=== PATIENT | female | born 1950 | race Caucasian/White ===

== ENCOUNTER → 2018-07-07 10:58 | Outpatient (CLI) | payer MEDICARE, SELFPAY ==
--- NOTE | 2018-07-07 | DI.MG.S_ITS ---
BILATERAL DIGITAL SCREENING MAMMOGRAM 3D/2D WITH CAD: 07/07/2018 CLINICAL: Routine screening. Family history of breast cancer. Comparison is made to exams dated: 07/03/2017 mammogram, 06/16/2016 mammogram, and 05/23/2015 mammogram - [facility]. There are scattered fibroglandular elements in both breasts. Current study was also evaluated with a Computer Aided Detection (CAD) system. No significant masses, calcifications, or other findings are seen in either breast. There has been no significant interval change. IMPRESSION: NEGATIVE There is no mammographic evidence of malignancy. A 1 year screening mammogram is recommended. This exam was interpreted at Station ID: [id number]. NOTE: For mammograms, a report in lay terms will be sent to the patient. Approximately 15% of breast malignancies will not be visualized mammographically. In the management of a palpable breast mass, a negative mammogram must not discourage biopsy of a clinically suspicious lesion. Electronically Signed By: Caleb griffith/perico:07/07/2018 16:44:08 letter sent: Normal Exam ACR BI-RADS Category 1: Negative [id number]
== END ==
PROVIDERS: PCP Family Medicine; Visit Provider Family Medicine
DX: Z12.31 Encounter for screening mammogram for malignant neoplasm of breast (principal); Z80.3 Family history of malignant neoplasm of breast
CPT/HCPCS: 77063; 77067

== ENCOUNTER → 2018-11-22 07:18 | Outpatient (CLI) | payer MEDICARE, SELFPAY ==
[2018-11-22 07:55] LABS: Add Manual Diff / Slide Review NO; Basophils Absolute Auto 100 /uL (0-100); Basophils Percent Auto 1.4 % (0-2); Eosinophils Absolute Auto 600 /uL (0-450); Hematocrit 41.9 % (36-46); Hemoglobin 14.2 g/dL (12.0-16.0); Lymphocytes Absolute Auto 1600 /uL (1100-4500); Lymphocytes Percent Auto 27.1 % (25-40); Mean Corpuscular HGB Conc 33.9 % (30-36); Mean Corpuscular Hemoglobin 31.9 PG (26-34); Monocytes Absolute Auto 600 /uL (0-900); Monocytes Percent Auto 10.6 % (3-14); Neutrophils Absolute Auto 2900 /uL (1500-7000); Neutrophils Percent Auto 49.9 % (50-75); Platelet Count 343 X10^3/uL (150-400); Red Blood Cell Count 4.45 X10^6/uL (4.0-5.2); Red Cell Distribution Width 16.6 % (11.6-14.8); White Blood Cell Count 5.9 X10^3/uL (4.5-11.0)
[2018-11-22 08:11] LABS: Hemoglobin A1C% w Est Avg Glu 6.9 % (4.0-6.0)
[2018-11-22 08:55] LABS: Alanine Aminotransferase 24 IU/L (9-52); Albumin 4.4 g/dL (3.5-5.0); Albumin Globulin Ratio 1.4 (1.0-2.8); Alkaline Phosphatase 68 U/L (38-126); Aspartate Aminotransferase 37 IU/L (14-36); Bilirubin Total 0.5 mg/dL (0.2-1.3); Blood Urea Nitrogen 21 mg/dL (7-17); Calcium 10.8 mg/dL (8.4-10.2); Carbon Dioxide 31 mmol/L (22-32); Chloride 93 mmol/L (98-107); Cholesterol 145 mg/dL (140-199); Estimated Glomerular Filt Rate > 60.0 mL/min (>60); Globulin 3.1 g/dL (1.7-4.1); Glucose 133 mg/dL (80-110); HDL Cholesterol 74 mg/dL (40-60); HEMOLYSIS < 15 (0-50); LDL Cholesterol Calculated 54 mg/dL (<100); Potassium 3.6 mmol/L (3.4-5.1); Sodium 135 mmol/L (137-145); Total Protein 7.5 g/dL (6.3-8.2); Triglycerides 84 mg/dL (35-150)
[2018-11-22 09:42] LABS: TSH w/ Reflex to FT4 0.79 uIU/mL (0.47-4.68)
== END ==
PROVIDERS: PCP Family Medicine; Visit Provider Family Medicine
DX: E04.1 Nontoxic single thyroid nodule (principal); E11.9 Type 2 diabetes mellitus without complications; E78.2 Mixed hyperlipidemia; I10 Essential (primary) hypertension
CPT/HCPCS: 36415; 80053; 80061; 83036; 84443; 85025

== ENCOUNTER → 2018-12-06 09:08 | Outpatient (CLI) | payer MEDICARE, SELFPAY ==
--- NOTE | 2018-12-06 09:10 | DI.US.S_ITS ---
PROCEDURE: US THYROID INDICATIONS: THYROID NODULE TECHNIQUE: Real-time scanning was performed of the thyroid gland, with image documentation. COMPARISON: [facility], US, THYROID, 06/16/2016, 9:03. FINDINGS: Right: Thyroid lobe measures 4.3 x 1.2 x 1.9 cm, and is homogeneous in echotexture. Left: Thyroid lobe measures 5.8 x 1.5 x 1.5 cm, and is homogenous in echotexture. Isthmus: 3 mm thick. Nodule number: #1 Location: Upper pole left thyroid lobe Size: 7 x 6 x 4 mm. Previously measures 8 x 6 x 5 mm. Composition: Solid Echogenicity: Hypoechoic Shape: Wider than tall Margins: Smooth Echogenic foci: Macrocalcifications Total points: 5 ACR TI-RADS category: 4 Nodule number: #2 Location: Lower pole left thyroid lobe Size: 2.3 x 1.3 x 1.5 cm. previously measures 2.4 x 1.7 x 2 cm in size. Composition: Solid Echogenicity: Hypoechoic Shape: Wider than tall Margins: Smooth Echogenic foci: None Total points: 4 ACR TI-RADS category: 4 Nodule number: #3 Location: Mid to lower pole right thyroid lobe Size: 8 x 6 x 8 mm in size. Previously measures 4 mm in size. Composition: Predominantly cystic Echogenicity: Isoechoic Shape: Wider than tall Margins: Smooth Echogenic foci: None Total points: 2 ACR TI-RADS category: 2 IMPRESSION: 1. Moderately suspicious nodules in right thyroid lobe are stable in size and appearance. Not suspicious-appearing nodule in inferior pole of right thyroid lobe is slightly larger in size on the current study. Continued sonographic followup is recommended. ACR TI-RADS definitions and recommendations: TI-RADS 1 (benign): 0 points. FNA not needed. TI-RADS 2 (not suspicious): 2 points. FNA not needed. TI-RADS 3 (mildly suspicious): 3 points. * FNA if 2.5 cm or larger, follow up if 1.5 cm or larger (at 1, 3, and 5 years). TI-RADS 4 (moderately suspicious): 4-6 points. * FNA if 1.5 cm or larger, follow up if 1 cm or larger (at 1, 2, 3, and 5 years). TI-RADS 5 (highly suspicious): 7 points or more. * FNA if 1 cm or larger, follow up if 0.5 cm or larger (every year for 5 years). Dictated by: Isac Tamez M.D. on 12/06/2018 at 10:45 Approved by: Isac Tamez M.D. on 12/06/2018 at 10:52
--- NOTE | 2018-12-06 09:10 | DI.US.S_ITS ---
PROCEDURE: US PELVIC COMPLETE INDICATIONS: PELVIC CA++ ON XRAY TECHNIQUE: Real-time scanning was performed of the pelvic organs, with image documentation. Additional endovaginal scanning was necessary due to incomplete visualization of the adnexal and endometrial structures by transabdominal scanning. COMPARISON: None. FINDINGS: Transabdominal scanning: Limited scanning through the kidneys shows no hydronephrosis. No pathologic free abdominal or pelvic fluid. 5 mm calcification is noted in the anterior mid myometrium. 2.3 cm calcified fibroid is seen in left myometrium. No gross endometrial mass or fluid. Endovaginal scanning: Uterus: Uterus is normal in size at 5.8 x 1.9 x 2.9 cm. The endometrium measures 1.7 mm in combined thickness. Ovaries: Right ovary measures 1.7 x 1.3 x 0.6 cm in size. Left ovary measures 2.5 x 1.3 x 1.8 cm in size. Simple appearing small follicles are seen in the left ovary measures up to 6 mm in size. No gross solid appearing lesion. IMPRESSION: 1. Likely 2.3 cm calcified fibroid in left myometrium. 5 mm calcification in the anterior mid myometrium which may represent a small calcified fibroid. No endometrial mass or fluid. 2. No adnexal mass or fluid. Subcentimeter follicles in left ovary. Dictated by: Isac Tamez M.D. on 12/06/2018 at 10:55 Approved by: Isac Tamez M.D. on 12/06/2018 at 11:07
== END ==
PROVIDERS: PCP Family Medicine; Visit Provider Family Medicine
DX: E04.2 Nontoxic multinodular goiter (principal); R10.2 Pelvic and perineal pain; D25.9 Leiomyoma of uterus, unspecified
CPT/HCPCS: 76536; 76830; 76856

== ENCOUNTER → 2018-12-24 15:04 | Outpatient (CLI) | payer MEDICARE, SELFPAY | PROVIDERS: PCP Family Medicine; Visit Provider Orthopaedic Surgery | DX: Z01.818 Encounter for other preprocedural examination (principal) | CPT/HCPCS: 93005 ==

== ENCOUNTER 2019-02-15 06:19 | Inpatient (IN) | payer MEDICARE, SELFPAY ==
[2019-01-31 12:45] VITALS: BMI 24.6
[2019-02-15] VITALS (14 sets, daily range): BP systolic 101–144; BP diastolic 47–85; PULSE 77–94; RESP 8–19; TEMP 36.2–37; O2SAT 93–98; BMI 24.6
--- NOTE | 2019-02-15 | DI.RAD.S_ITS ---
PROCEDURE: XR PELVIS 1-2V INDICATIONS: INTEROP TECHNIQUE: 1 view of the lower pelvis acquired. COMPARISON: [facility], , PELVIS W UNILATERAL HIP LEFT, 02/15/2015, 10:40. FINDINGS: Bones: Patient is status post right hip arthroplasty, with hardware components in expected positions. The hip joint appears congruent. The visualized bony structures appear intact. Soft tissues: Overlying postoperative changes are noted. No suspicious soft tissue densities. IMPRESSION: Intraoperative film shows right total hip arthroplasty with anatomic alignment. Dictated by: Isac Tamez M.D. on 02/15/2019 at 10:39 Approved by: Isac Tamez M.D. on 02/15/2019 at 10:40
--- NOTE | 2019-02-15 06:00 | DI.RAD.S_ITS ---
PROCEDURE: XR HIP W PEL IF DONE RT 2V INDICATIONS: post op films TECHNIQUE: AP pelvis and lateral view of the right hip acquired. COMPARISON: [facility] [place], CR, XR PELVIS WITH BILATERAL LATERAL HIPS, 09/17/2018, 10:54. [facility], CR, HIP 2V LEFT, 10/11/2013, 11:16. [facility], [facility], XR PELVIS 1-2V, 02/15/2019, 9:30. FINDINGS: Bones: Patient is status post right hip arthroplasty, with hardware components in expected positions. The hip joint appears congruent. The visualized bony structures appear intact. Left hip arthroplasty is stable. Soft tissues: Overlying postoperative changes are noted. No suspicious soft tissue densities. Calcifications are present in the pelvis, likely related to uterine fibroids. IMPRESSION: Right hip arthroplasty as above. Dictated by: Reta Shi M.D. on 02/15/2019 at 10:14 Approved by: Reta Shi M.D. on 02/15/2019 at 10:16
[2019-02-15] MEDS: ACETAMINOPHEN 325 MG TABLET 975 MG PO (06:59)
[2019-02-15] MEDS: MELOXICAM 7.5 MG TABLET 15 MG PO (06:59)
[2019-02-15] MEDS: VANCOMYCIN 1,000 MG/200 ML PIGGYBACK 200 MG IV (06:59)
[2019-02-15] MEDS: PREGABALIN 75 MG CAPSULE PO (07:00)
--- NOTE | 2019-02-15 07:37 | PM.PREOP ---
Pre-operative Note Interval Note History & Physical reviewed/Exam performed by Physician: Yes Changes to H&P: No
--- NOTE | 2019-02-15 07:38 | P.OP_ITS ---
Operative Date/Time/Diagnoses Date of procedure: 02/15/19 Time of procedure: 07:59 Pre-op diagnosis: right hip OA Post-op diagnosis: same Procedure & Clinicians Procedure: right total hip arthroplasty Same procedure as scheduled: Yes Indications: The patient has had progressively worsening right hip pain with radiographic changes consistent with arthritis. Non-operative management has failed and the patient has requested total hip replacement. The risks, benefits and alternatives to surgery were discussed with the patient prior to proceeding. Risks discussed included, but were not limited to, failure to relieve pain, leg length discrepancy, dislocation, stiffness, infection, nerve damage, deep venous thrombosis, pulmonary embolism, stroke, coma, heart attack, permanent paralysis and , as well as the potential need for eventual revision of the prosthetic. Surgeon: Kori Madden Career Services Manager: Fuentes Salas Anesthesia Type: General and Spinal Operative Notes Findings: Severe right hip osteoarthritis, adequate stability, adequate bone Closure Type: primary Specimen(s): none sent Prosthetic devices, grafts, tissues, transplants, or devices: [employer]en [employer] Nephew size 4 anthology, 50 mm R3 cup, one 6.5mm screw, +0 by 32 mm oxinium head Applied: drain(s) Estimated Blood Loss (mL): 250 Blood products transfused: none Procedure in detail: The patient was seen in the pre-operative area, where the patient identified the right hip as the operative site and this was marked with my initials. The patient received pre-operative antibiotics and was taken to the operating room and placed on the operative table in the left lateral decubitus position after satisfactory anesthesia. A second time worker out was performed. The right leg was prepared from the ankle to the iliac crest with ChloroPrep in the usual fashion and draped through sterile drapes. The hip was approached through an approximately 20 cm incision centered over the greater trochanter and curving gently posteriorly as it went proximally. This was carried sharply to the fascia dimple, which was divided and retracted with a self retaining retractor. The trochanteric bursa was excised with care being taken to avoid the sciatic nerve, which was identified and protected throughout the case. The short external rotators were incised and the capsulomuscular flap was raised and tagged for later repair. The hip was dislocated, and a femoral neck osteotomy performed approximately 15 mm above the lesser trochanter. Retractors were placed around the femur. The canal was opened with a box cutting osteotome, followed by a T handled reamer and a lateralizing reamer. The chili pepper broach was then used, followed by sequential broaching until there was good stability of the broach in the femur. Retractors were placed to expose the acetabulum. The labrum and central soft tissues were removed. Reaming was performed initially going up in 2 mm increments, then 1 mm increments until good bite was obtained with an odd sized reamer. The cup 1 mm larger than the last reamer was then inserted using the appropriate anteversion guides. It was further stabilized with a 6.5mm screw. A trial neutral liner was placed. The broach was placed in the canal. A trial head and neck were then placed and the hip relocated and checked for leg length and stability. An intraoperative film confirmed the component position and no evidence of fracture. The patient was stable in the position of sleep, of squatting, and could be put through a range of motion with 45 degrees internal rotation without dislocation. At 90 de grees flexion, internal rotation to 70? was possible before dislocation. This was felt to be satisfactory and the appropriate components were opened, and the trials were removed. The acetabular liner was impacted into position. The final stem was then impacted into the prepared femoral canal. A brief Betadine soak was performed while trialing with head options. The hip was meticulously irrigated with normal saline. Finally the femoral head was impacted onto the stem. The acetabulum was cleared of all material and the hip relocated one final time. The capsulomuscular flap was then repaired to the greater trochanter though an awl hole using the tag sutures. The short external rotators were repaired with a nonabsorbable suture. A deep drain was placed and brought out anteriorly. The fascia dimple was closed with Vicryl. The subcutaneous layer was closed with barbed sutures and SteriStrips. An Aquacel Ag dressing was applied and the patient was taken to recovery having tolerated the procedure well. Complications: none Post-operative Condition: stable Disposition: Acute Care Plan for aftercare: The patient will be maintained on a standard total hip replacement protocol with weight bearing as tolerated and posterior hip precautions. The patient will receive Aspirin and sequential compression devices for DVT prophylaxis. The patient will be discharged home when safe for the home environment.
[2019-02-15] MEDS: LACTATED RINGERS 1,000 ML 42 ML IV (08:14)
[2019-02-15] MEDS: MIDAZOLAM 2 MG/2 ML VIAL IV (08:15)
--- NOTE | 2019-02-15 08:15 | SUR.PREOP ---
Put on continuous pulse ox prior to administration of medication.
[2019-02-15] MEDS: CEFAZOLIN 2 GM/100 ML FROZ.PIGGY IV ×2 (08:30→16:08)
--- NOTE | 2019-02-15 09:04 | SUR.OPER ---
Lateral on padded OR bed. Gel axillary roll. Arms secured on padded armboard with pillow supporting top arm. Padded hip positioner braces x4 - anterior and posterior chest and pelvis. Additional gel pad used anterior pelvis. Gel pad under bottom leg from knee to foot and secured with tape over sheet.
[2019-02-15] MEDS: BUPIVACAINE LIPOSOME 266 MG/20 ML VIAL INJ (09:14)
[2019-02-15] MEDS: BUPIVACAINE 0.25% W/ EPI (PF) 10 ML VIAL 60 ML INJ (09:17)
[2019-02-15] MEDS: TRANEXAMIC ACID 1,000 MG VIAL 1000 MG INJ ×2 (09:18→09:32)
[2019-02-15] MEDS: SODIUM CHLORIDE IRRIG SOLUTION 250 ML, EPINEPHrine 1 MG IRR (09:24)
[2019-02-15] MEDS: SODIUM CHLORIDE IRRIG SOLUTION 250 ML, POVIDONE-IODINE SPONGE STICKS 1 APPLIC IRR (09:32)
--- NOTE | 2019-02-15 09:36 | SUR.OPER ---
Late start in OR because of an .emergency surgery in OR 2 - ex lap with Dr. Willams, anesthesiologist was busy.
[2019-02-15] MEDS: HYDROMORPHONE 2 MG INJ IV ×4 (10:55→11:30)
[2019-02-15] MEDS: INSULIN ASPART 100 UNIT/ML INSULN PEN SUBCUT ×3 (11:02→22:29)
[2019-02-15] MEDS: LACTATED RINGERS 1,000 ML 125 ML IV (12:54)
[2019-02-15] MEDS: OXYCODONE IR 5 MG TABLET PO ×3 (13:00→21:34)
--- NOTE | 2019-02-15 14:02 | PC.NURSE ---
1200- Pt arrived to floor at 1200. She is groggy but a&ox3. Dressing to r.hip is cdi, with hemovac putting out bloody drainage. She is a diabetic and bs down in pacu 190s, given 2u of novolog insulin. Pt tolerating a carb consistent diet and denies nausea. She has feeling to her r.hip and denies any numbness or tingling. Pt is able to wiggle her ankle and toes, SCDs applied to legs. Pt has an iv to her l.wrist and LR at 125cc/hr infusing. Given 1 oxycodone for complaints of 7/10 pain and helpful. Resting comfortably and in room. Tolerated her lunch at 1300.
[2019-02-15] MEDS: ACETAMINOPHEN 325 MG TABLET 650 MG PO ×2 (14:23→21:24)
[2019-02-15] MEDS: IBUPROFEN 400 MG TABLET PO ×3 (14:23→21:24)
--- NOTE | 2019-02-15 14:38 | PT-IP ANOTE ---
Received PT orders and reviewed chart. Contacted pt to initiate evaluation, but pt unable to move left leg and presents as quite groggy with difficulty attending to conversation. Will attempt to see pt either late this afternoon or morning of 02/16.
[2019-02-15] MEDS: ONDANSETRON 4 MG ODT PO (16:08)
[2019-02-15] MEDS: DOCUSATE 100 MG CAPSULE PO (21:24)
[2019-02-15] MEDS: PANTOPRAZOLE 20 MG TABLET PO (21:25)
[2019-02-15] MEDS: SIMVASTATIN 40 MG TABLET PO (21:25)
[2019-02-15] MEDS: ASPIRIN EC 81 MG TABLET PO (21:25)
[2019-02-15] MEDS: TRIAMTERENE/HCTZ 37.5/25 TABLET 1 CAP PO (21:41)
[2019-02-16] VITALS (8 sets, daily range): BP systolic 106–146; BP diastolic 55–82; PULSE 65–94; RESP 16–17; TEMP 35.9–36.8; O2SAT 92–99
[2019-02-16] MEDS: IBUPROFEN 400 MG TABLET PO ×6 (00:06→20:33)
[2019-02-16] MEDS: CEFAZOLIN 2 GM/100 ML FROZ.PIGGY IV (00:07)
[2019-02-16] MEDS: OXYCODONE IR 5 MG TABLET PO ×3 (00:09→06:14)
[2019-02-16] MEDS: ALPRAZolam 0.5 MG TABLET 1 MG PO ×2 (03:19→23:30)
[2019-02-16 05:35] LABS: Hematocrit 30.4 % (36-46); Hemoglobin 10.1 g/dL (12.0-16.0)
--- NOTE | 2019-02-16 06:17 | PC.NURSE ---
Pt is mobilizing well. 1p FWW to BSC. Reports pain 8 out of 10; oxycodone 5mg given with some relief. Ibuprofen and tylenol scheduled. LR@125mL/hr running throughout night; d/c'ed this morning, no nausea. B/L SCDs on throughout night. Hemovac= 55mL sanguinous Fingerstick overnight was 212
--- NOTE | 2019-02-16 07:46 | PC.NURSE ---
Addendum entered by Tiffani Aburto R.N. 02/16/19 15:55: Pain with rest 10, with movement /10. PRN Oxycodone increased to 10mg given at 1100 and 1410. Vistaril prn given at 0840. Pain goal to be lower. explained to pt that goal is to catch up on pain level from night/AM and may need a couple doses with new pain regime to be more effective, Evening RN to assess, ? change pain med if neede. and aware to remove hemovac today. Right hip aquacel dressing CDI. CMS+, denies numbness/tingling. Original Note: Day Shift- Spoke with ROSALIE Núñez, request for prn Vistaril, pt having pain issues she reports over night.
--- NOTE | 2019-02-16 07:59 | PM.PN.1 ---
Subjective Subjective Date Patient Seen: 02/16/19 Time Patient Seen: 07:59 Interval history: Patient is POD#1 s/p R MELLY with Dr. Madden. Pain moderate to severe overnight. Minimal nausea no emesis. Ambulated to bedside commode and voiding appropriately but has no worked with PT. No chest pain shortness of breath. Exam Vital Signs (past 8 hours): - 02/16/19 00:10 02/16/19 03:14 Temperature 97.9 F 97.4 F L Pulse Rate 82 75 Respiratory Rate 16 Blood Pressure 122/58 L 119/64 Pulse Oximetry 98 98 Oxygen Delivery Method Room Air Oxygen Flow Rate 0 Narrative Exam Narrative: 68 year old female resting in bed, alert and oriented no acute distress. Aquacel dressing is CDI. Drain in place. PAtient able to fire foot flexors and extensors. Calves soft, compressible. Palpable pedal pulse. Objective Labs Result Diagrams: 02/16/19 05:03 Labs: Laboratory Results - last 24 hr 02/16/19 05:03 Hgb 10.1 L Hct 30.4 L Assessment & Plan Assessment & Plan narrative: Improve pain control today. Oxycodone 10mg Q3h and Vistaril 25mg Q4h for spasm added. Mobilize with PT. ASA 81mg BID and SCDs for DVT prophylaxis. Possible discharge to home later or today or tomorrow if improved mobility/pain control. Quality VTE Deep Vein Thrombosis/Pulmonary Embolism Present on Admission: No
[2019-02-16] MEDS: INSULIN ASPART 100 UNIT/ML INSULN PEN SUBCUT ×4 (08:33→20:35)
[2019-02-16] MEDS: POLYETHYLENE GLYCOL 3350 17 GM POWD.PACK PO (08:40)
[2019-02-16] MEDS: DOCUSATE 100 MG CAPSULE PO ×2 (08:41→20:33)
[2019-02-16] MEDS: ASPIRIN EC 81 MG TABLET PO ×2 (08:41→20:33)
[2019-02-16] MEDS: TRIAMTERENE/HCTZ 37.5/25 TABLET 1 CAP PO ×2 (08:41→20:36)
[2019-02-16] MEDS: FERROUS GLUCONATE 324 MG TABLET PO (08:41)
[2019-02-16] MEDS: PANTOPRAZOLE 20 MG TABLET PO ×2 (08:41→20:33)
[2019-02-16] MEDS: hydrOXYzine pamoate 25 MG CAPSULE PO ×3 (08:41→23:30)
[2019-02-16] MEDS: ACETAMINOPHEN 325 MG TABLET 650 MG PO ×3 (08:42→20:34)
--- NOTE | 2019-02-16 09:14 | CM.DANOTE ---
DCP Assessment: EMR reviewed: Patient is a 68 yr old female who was admitted for Rt MELLY preformed by Dr. Madden. Patients PCP is Dr. Paredes. CM/RN met with patient at the bedside and explained role. Patient was alert and oriented x3 at time of CM/RN visit. . Patient currently lives in a single level home with two steps into the house from the garage. Patient live with her Jaret who will be home to assist patient with her recovery. Patient has out patient PT set up with [facility] and plans to continue with them when she is d/c. Patient currently owns a FWW, Cane and bath bench at home. Patient is I at base line with ADL's and drives her own vehicle. PT/ OT evaluations pending. Patient did state that she is having difficulty with getting her pain under control. CM/RN asked if patient had spoken with her nurse. patient stated she did. CM/RN verified with RN that she was aware of patients pain level of 9/10. Patients nurse was aware and was bringing her pain medication as CM/RN was leaving the patients room. I:1st:Medicare 2nd: AARP Plan: D/C home with when medically stable. No identified D/C planning needs noted at this time. Cm Department will follow and manage any D/C planning needs that should arise. Jessi Madden RN Discharge Planning/Care Management CM Discharge Assessment Start: 02/16/19 09:12 Freq: Status: Active Protocol: Document 02/16/19 09:12 HS (Rec: 02/16/19 09:14 [id number]) Discharge Planning Assessment Assigned Diamond Grader Jessi Madden RN DPOA/Assigned Designee Name Jaret medina () Contact Information [phone] Advance Directives? Yes Advance Directives on File Yes History Provided By Patient Has Patient been admitted in last 30 No days? Prior Living Arrangements House Household Members spouse Type of transporation used prior to Drives own vehicle admit Independent with ADL's Yes Is patient alert and oriented? Yes Caregiver for Another No DME Already Rented / Owned Bath Bench,FWW / Walker,Cane Patient/Family Preference OP PT Therapy Discharge Plan Home Referrals Initiated None needed Whiteboard Updated in Patient Room with Yes name and ext. # of Diamond Grader Review Status In Process Next Review Type Continued Stay Review Pre-Anesthesia Assessment Start: 01/31/19 12:45 Freq: Status: Complete Protocol: Document 01/31/19 12:45 CAB (Rec: 01/31/19 13:32 CAB [id number]) Pre-Anesthesia Assessment Preferred Name Dillon Patient Information Reviewed Via Phone Assessment Assessment Completed With Patient Consent for Planned Operative Procedure( Yes s) Verified Diagnostic Results BMP/CMP,CBC,EKG Comment Labs/EKG @ [facility] Primary Care Provider Juan Carlos Paredes Seen Specialist in Last 12 Months Yes Specialist Seen Orthopedist,Apartment Maintenance Technician Comment Pulmonary note 12/14/18 scanned to record Primary Language Telugu Director Of Revenue Cycle Management Required No Height 165.1 cm Weight 67.132 kg Body Mass Index (BMI) 24.6 Hearing Ability Normal Visual Assist Glasses Dentition Type Teeth, Natural Present Barriers to Learning None Other Aids No Hx Anesthesia Reactions Yes: Woke up during c-scope, has a fear of waking up during a surgery Hx Family Anesthesia Reaction No: Pt adopted Hx Malignant Hyperthermia No Hx Blood Transfusions Yes: 02/2015 r/t LT MELLY Hx Blood Transfusion Reaction No Comment Does not want a spinal Anesthesia Review Requested No alcohol intake current alcohol intake frequency 0-2 drinks per day Smoking Status Former smoker how long ago did patient quit smoking Quit 35 years ago Substance Use Type does not use Pain Present Pain Reported Musculoskeletal Symptoms Abnormal Gait,Difficulty Walking,Joint Pain History of Falling (Recent or History of No ) Patient is completely paralyzed or No completely immobile Mental Status Oriented to own ability Is patient on oxygen? No Does patient have LINCOLN/SOB No Hx Sleep Apnea No Currently Taking a Beta Herson No Can You Climb a Flight of Stairs Without Yes SOB Hx Chest Pain No Hx SOB No Hx Syncope or Dizziness No Anti-Coagulant Therapy No Has a Hammer Mill Operator No Cardiac Testing No Hx Pacemaker/ICD No Pacemaker Rep Required? No Cardiac Clearance Received Not Applicable Diet Type At Home Regular dysphagia No Urinary Catheter Present No Hx Urinary Self Catheterization No Diabetes Yes HgbA1C 6.9 Date 11/22/18 Patient No Lactating No Hx Drug Resistant Organism No Presence of External or Internal Medical Yes: Left hip prosthesis Devices Have you traveled outside the [place] in the last 30 days? Marital Status Lives With spouse Prior Living Arrangements House Number of Floors (Floors) One Floor Support System Spouse Does the Patient Have Assistance After Yes Surgery Patient Discharge Plan Description Return Home Comment Pt not advised on length of stay per surgeon's office Feels Safe in Current Environment Yes Been Physically Hurt or Threatened By a No Person in Current Environment Do you have thoughts of harming yourself None or others? Are you currently considering suicide? No Do you have a plan to hurt yourself or No Plan others? Do You Have Any Spiritual Beliefs That No May Affect Your HC Choices? Do You Have Any Cultural Practices That No May Affect Your HC Choices? Comment [place] Who Can We Speak to About Patient's Care Family, friends Identifying Code for Release of Patient Declines to issue Information Health Care Proxy/Next of Kin Rafael () Health Care Proxy Emergency Contact Name Rafael () Emergency Contact Advance Directives? Yes Advance Directives on File Yes Power of Line Assembler Aircraft Yes PAC Instructions Do not shave/clip surgical site,Durable medical equipment ,Medications to take/avoid, Nasal antibiotic,No ETOH/ petroleum product on skin DOS, NPO,Post-op transportation,Pre -surgical wash,Sturdy shoes/ comfortable clothes,Do not bring valuables and remove jewelry
[2019-02-16] MEDS: OXYCODONE IR 10 MG TABLET PO ×5 (11:01→23:30)
--- NOTE | 2019-02-16 11:44 | PT.IIE ---
Current Diagnoses Unilateral primary osteoarthritis, right hip (02/15/19) Surgery Performed Operation Date: 02/15/19 07:45 Actual Procedures p Total Hip Arthroplasty(Right) - Kori Madden MD Surgical History (Last Updated 01/31/19 @ 12:57 by Teri Mann, RN) History of cystoscopy History of tonsillectomy History of total left hip arthroplasty (Acute ~2015) Medical History (Last Updated 01/31/19 @ 13:22 by Teri Mann RN) Anemia (Acute) Anxiety (Acute) Chronic pain (Acute) Depression (Acute) Diabetes (Acute) Hand arthritis (Acute) HLD (hyperlipidemia) (Acute) Mild persistent asthma (Acute) Physical Therapy Inpatient Evaluation/Re-Eval M1 PT/OT-IP Prior Functional Status Start: 02/15/19 13:49 Freq: NEEDED Status: Active Protocol: Document 02/16/19 10:05 (Rec: 02/16/19 11:44 [email or web address]) Medical Review Prior Functional Status Communication able to make needs known. no deficits noted. Mobility and Gait Pt was very active until 2 month ago due to increased R hip pain. Pt used to participate water volleyball and yoga several times a week. Able to walk couple miles a day as well. But she reports she was limping a lot recently . Activities of Daily Living and IADL's Independent for all ADLs and IADLS without AD. She was driving as well Social History Household Members spouse Living Arrangements House Number of Stairs To Enter/Railing? 2.5 steps from garage entrance (has a transition pole on R side for support) Home Environment Standard Height Toilet Home Equipment Front Wheel Walker,Straight Cane,Raised Toilet Seat w/ Armrests,Tub Transfer Bench, Hand Held Shower Employment Status Retired Additional Social History Comment Pt lives with her at [facility]. Pt had L MELLY 4 years ago and was able to d/c home with husnbad assistance. Pt's Rafael (works as EMT ) will take days off as needed to assista. She scheduled outpatient PT at [facility] . M2 PT-IP Current Condition Start: 02/15/19 13:49 Freq: NEEDED Status: Active Protocol: Document 02/16/19 10:05 (Rec: 02/16/19 11:44 [email or web address]) Physical Therapy Current Condition Current Condition Evaluation Date 12/04/19 Treatment Diagnosis R MELLY (post) , difficulty in walking, decreased activity tolerance Onset Date 02/15/19 Precautions Posterior Hip Precautions No Hip Flexion > 90 degrees,No Hip Internal Rotation,No Hip Adduction Weight Bearing Status Weight Bearing Status Weight Bear as Tolerated M3 PT-IP Subjective Start: 02/15/19 13:49 Freq: NEEDED Status: Active Protocol: Document 02/16/19 10:05 (Rec: 02/16/19 11:44 [email or web address] Subjective Physical Therapy Visit Type Type Initial Evaluation Visit Start Time 10:05 Visit Stop Time 10:45 Total Visit Minutes 40 Notes Pt's Rafael at bedside. Number of MANAGER ASSEMBLY Visits 0 Physical Therapy Visit Comments Patient Comments I have a lot of pain compared to my previous L total hip replacement. Patient Goals To return home with her . Therapy Pain Assessment Pain When Pain Assessed At Rest Pain Present Pain Present Pain Reported Location Right Hip Intensity 6 Description Acute Pain Management Techniques Apply Cold,Distraction,Re- positioning,Timing of Activity with Medications M4 PT-IP Mobility and Gait Start: 02/15/19 13:49 Freq: NEEDED Status: Active Protocol: Document 02/16/19 10:05 (Rec: 02/16/19 11:44 [email or web address]) PT-Bed Mobility Assessment Supine to Sit Supine to Sit Contact Guard Assistance Scooting Scooting to Edge of Bed Contact Guard Assistance PT-Transfer Assessment Sit to and From Stand Sit to and from Stand Minimal Assistance,Use of Upper Extremities Equipment Transfer Assistive Device Gait Belt,Front Wheeled Walker Orthotic/Prosthetic Devices or Brace: No Transfers Transfer Destination Bed,Chair Transfer Technique amb with FWW Transfer Ability Level of Assist Minimal Assistance Comments Mobility Comments Pt was up in bed upon assessment with c/o mod to high pain. Pt agreed to mobilize with PT. She completed supine to long sit and able to slowly pivot her RLE with B UEs support to R side EOB. Pt approx took 3 minutes to complete due to increase pain. Pt then stood up with min A with FWW. She c/ o significant pain with WB on RLE. Practiced slight lateral weight shift multiple times f/ b ambulation with FWW. Pt amb from R side of the bed and returned to bedside chair on the opposite side. Pt used step to gait and primarily WB through B UEs and L LE. She slowly turned around after and able to amb backward for stand to sit transfer with staggered stance. Pt sat in chair and was reclined to elevated B LEs. Call light placed within reach. Gait Assessment Gait Gait Assistance Required: Contact Guard Assist Distance (Feet) 8 Able to Maintain Weight Bearing Status Yes During Gait Assistive Devices Assistive Device Gait Belt,Front Wheeled Walker Orthotic/Prosthetic Devices or Brace: No Gait Deviations General Gait Pattern Antalgic,Decreased Stride Length,Decreased Feet Clearance,Step-to Gait Factors Limiting Gait Function Factors Limiting Gait Function Decreased Activity Tolerance, Decreased Strength,Limited Range of Motion,Pain Comments Gait Comments see mobility section. Stair Climbing Assessment Comments Stair Climbing Comments did not assess PT-Balance Assessment Sitting Balance and Reactions Static Sitting Balance Ability Normal Dynamic Sitting Balance Ability Normal Standing Balance and Reactions Static Standing Balance Ability Good Dynamic Standing Balance Ability Good Device Used FWW M5 PT-IP Objective Assessments Start: 02/15/19 13:49 Freq: NEEDED Status: Active Protocol: Document 02/16/19 10:05 (Rec: 02/16/19 11:44 [email or web address]) Orientation Orientation/Cognition Level of Alertness Alert Orientation Name,Age,Birthday,Month,Date, Year,Day of Week,Place, Situation Safety Awareness Understands Safety Issues Memory Description No Deficits Noted Gross Range of Motion Upper Extremity ROM Assessment Within Functional Limits Lower Extremity ROM Assessment Right Impaired Strength Upper Extremity Strength Assessment Within Functional Limits Lower Extremity Strength Assessment Right Impaired Hip 3/5 Coordination Assessment Gross Coordination Gross Coordination WNL Sensation Assessment Sensation Gross Sensation WNL Muscle Tone Muscle Tone WNL Yes M6 PT-IP Treatment Start: 02/15/19 13:49 Freq: NEEDED Status: Active Protocol: Document 02/16/19 10:05 (Rec: 02/16/19 11:44 [id number]) Physical Therapy Treatment Exercises Exercises Ankle Pumps,Gluteal Sets,Quad Sets Education Education Provided Precautions,Weight Bearing Status,Post-Op Packet,Safety M7 PT-IP Assessment and Plan Start: 02/15/19 13:49 Freq: NEEDED Status: Active Protocol: Document 02/16/19 10:05 (Rec: 02/16/19 11:44 [email or web address]) PT Summary Assessment and Plan Potential Rehabilitation Potential Excellent Status of Condition at Evaluation Stable Summary Impairments Pain,ROM,Strength,Balance,Bed Mobility,Transfers,Gait, Activity Tolerance Assessment Summary Pt is a low complexity s/p POD1 R MELLY (post approach). Pt 's primary limitation at this point is pain management who requested to have oxycodone at the end of session. Pt overall needed min A with FWW for transfers and amb, and performed them slowly due to increased pain. She does appear very safe and steady, and have a good understanding of her post op precautions. Pt will have to clear >2.5 steps with R handle prior to d/c home with assistance and outpatient PT. Goals Bed Mobility Goal Standby Assistance Transfer Goal Standby Assistance,Front Wheeled Walker Gait Goal Standby Assistance,Front Wheel Walker Gait Distance 150 Other Goals 2.5 NUSRAT with R rail SBA Days to Meet Goals 5 Frequency of Treatment Frequency Of Treatment Twice a Day Treatment Plan Physical Therapy Treatment Plan Bed Mobility Training,Transfer Training,Gait Training, Therapeutic Exercise,Balance Retraining,Post Op Education, Discharge Planning,Hot or Cold Pack,Neuromuscular Re-ed Other Recommendations and Next Treatment reivew precautions, bed mob, Focus transfer and gait training as phong stair climbing if possible. Recommendations To Nursing Amount of Assist Needed 1 Person Assist Discharge Recommendations PT Discharge Recommendations Home with Assistance, Outpatient PT
--- NOTE | 2019-02-16 14:00 | PT.IPTN ---
Current Diagnoses Unilateral primary osteoarthritis, right hip (02/15/19) Surgery Performed Operation Date: 02/15/19 07:45 Actual Procedures p Total Hip Arthroplasty(Right) - Kori Madden MD Physical Therapy Treatment Note M2 PT-IP Current Condition Start: 02/15/19 13:49 Freq: NEEDED Status: Active Protocol: Document 02/16/19 10:05 HH (Rec: 02/16/19 11:44 [email or web address]) Physical Therapy Current Condition Current Condition Evaluation Date 02/16/19 Treatment Diagnosis R MELLY (post) , difficulty in walking, decreased activity tolerance Onset Date 02/15/19 Precautions Posterior Hip Precautions No Hip Flexion > 90 degrees,No Hip Internal Rotation,No Hip Adduction Weight Bearing Status Weight Bearing Status Weight Bear as Tolerated M3 PT-IP Subjective Start: 02/15/19 13:49 Freq: NEEDED Status: Active Protocol: Document 02/16/19 14:00 AB (Rec: 02/16/19 14:38 AB [id number]) Subjective Physical Therapy Visit Type Type Treatment Note Visit Start Time 14:00 Visit Stop Time 14:25 Total Visit Minutes 25 Number of BURN TABLE OPERATOR Visits 0 Physical Therapy Visit Comments Patient Comments pt agreeable to do PT Therapy Pain Assessment Pain When Pain Assessed At Rest Pain Present Pain Present Pain Reported Location Right Hip Intensity 7 Scale Used increases to 8/10 with mobility Pain Management Techniques Re-positioning,Timing of Activity with Medications M4 PT-IP Mobility and Gait Start: 02/15/19 13:49 Freq: NEEDED Status: Active Protocol: Document 02/16/19 14:00 AB (Rec: 02/16/19 14:38 AB [id number]) PT-Bed Mobility Assessment Supine to Sit Supine to Sit Standby Assistance,1 Person Assistance Sit to Supine Sit to Supine Standby Assistance,1 Person Assistance Scooting Scooting to Edge of Bed Standby Assistance PT-Transfer Assessment Sit to and From Stand Sit to and from Stand Contact Guard Assistance Equipment Transfer Assistive Device Gait Belt,Front Wheeled Walker Orthotic/Prosthetic Devices or Brace: No Gait Assessment Gait Gait Assistance Required: Contact Guard Assist,Minimum Assistance Distance (Feet) 30 Able to Maintain Weight Bearing Status Yes During Gait Assistive Devices Assistive Device Gait Belt,Front Wheeled Walker Orthotic/Prosthetic Devices or Brace: No Gait Deviations General Gait Pattern Antalgic,Decreased Stride Length,Decreased Feet Clearance Factors Limiting Gait Function Factors Limiting Gait Function Decreased Activity Tolerance, Decreased Strength,Limited Range of Motion,Pain,Poor Balance,Poor Safety Awareness Comments Gait Comments pt completed ambulation in room using FWW ~ 30 ft CGA to min A and cues for quad activation. c/o increase pain with mobility stating that she cannot put weight on her RLE. M5 PT-IP Objective Assessments Start: 02/15/19 13:49 Freq: NEEDED Status: Active Protocol: Document 02/16/19 10:05 (Rec: 02/16/19 11:44 [email or web address]) Orientation Orientation/Cognition Level of Alertness Alert Orientation Name,Age,Birthday,Month,Date, Year,Day of Week,Place, Situation Safety Awareness Understands Safety Issues Memory Description No Deficits Noted Gross Range of Motion Upper Extremity ROM Assessment Within Functional Limits Lower Extremity ROM Assessment Right Impaired Strength Upper Extremity Strength Assessment Within Functional Limits Lower Extremity Strength Assessment Right Impaired Hip 3/5 Coordination Assessment Gross Coordination Gross Coordination WNL Sensation Assessment Sensation Gross Sensation WNL Muscle Tone Muscle Tone WNL Yes M6 PT-IP Treatment Start: 02/15/19 13:49 Freq: NEEDED Status: Active Protocol: Document 02/16/19 14:00 AB (Rec: 02/16/19 14:38 AB [id number]) Physical Therapy Treatment Exercises Exercises Heel Slides Education Education Provided Precautions,Safety Other Treatments Other Treatment Performed reviewed hip precautions with pt and pt recalled 2/3 M7 PT-IP Assessment and Plan Start: 02/15/19 13:49 Freq: NEEDED Status: Active Protocol: Document 02/16/19 14:00 AB (Rec: 02/16/19 14:38 AB [id number]) PT Summary Assessment and Plan Potential Rehabilitation Potential Good Summary Impairments Pain,ROM,Strength,Balance,Bed Mobility,Transfers,Gait, Activity Tolerance Progress Towards Goals Slow Progress due to Pain Assessment Summary pt requiring CGA to min A with mobility but unable to tolerate much due to c/o pain. d/c plan depending on progress but pt plans to go home with spouse to assist her . pt also has steps to get into the house and will conduct stair training prior to d/c. Goals Bed Mobility Goal Standby Assistance Transfer Goal Standby Assistance,Front Wheeled Walker Gait Goal Standby Assistance,Front Wheel Walker Gait Distance 150 Other Goals 2.5 NUSRAT with R rail SBA Days to Meet Goals 5 Frequency of Treatment Frequency Of Treatment Twice a Day Treatment Plan Physical Therapy Treatment Plan Bed Mobility Training,Transfer Training,Gait Training, Therapeutic Exercise,Balance Retraining,Post Op Education, Discharge Planning,Hot or Cold Pack,Neuromuscular Re-ed Other Recommendations and Next Treatment ambulation, stair climbing Focus Recommendations To Nursing Amount of Assist Needed 1 Person Assist Discharge Recommendations PT Discharge Recommendations Home with Assistance, Outpatient PT
[2019-02-16] MEDS: HYDROMORPHONE 0.5 MG INJ IV (19:25)
[2019-02-16] MEDS: SIMVASTATIN 40 MG TABLET PO (20:33)
[2019-02-16] MEDS: BECLOMETHASONE 80 MCG INH 10.6 GM 1 PUFF INH (20:35)
[2019-02-16] MEDS: SODIUM CHLORIDE 0.9% FLUSH 10 ML IV (20:37)
[2019-02-16] MEDS: ALBUTEROL HFA 60 PUFF/8 GM INH INH (20:37)
--- NOTE | 2019-02-16 23:46 | PC.NURSE ---
Addendum entered by Norma Rivera R.N. 02/17/19 06:25: States she slept well. Ambulated to bathroom with walker and SBA and tolerated well. States this is the best it has been for pain control since the surgery. Medicated with Oxycodone for 4/10 right hip pain. Addendum entered by Norma Rivera R.N. 02/17/19 03:14: States right hip pain is again 5/10; medicated with Oxycodone and patient repositioned self. Original Note: Patient is alert and oriented. Breath sounds CTA with RA sat of 99%. HRR. BP elevated from previous readings at 146/82. Denies nausea. BT present and abdomen is soft; passing flatus. Up to bathroom with walker and 1 assist; denies weakness but does have pressure pain when up. Voiding without dysuria, frequency or urgency. Is able to turn herself in bed. Aquacel dressing to right hip is CDI. Hemovac site dressing is CDI. Complains of 5/10 pain so medicated with Oxycodone + Vistaril; declines ice at this time. CMS is intact. Wearing bilateral calf SCD's. Fall risk score is high and bed alarm is activated.
[2019-02-17] MEDS: IBUPROFEN 400 MG TABLET PO ×4 (01:20→12:51)
[2019-02-17 03:00] VITALS: BP 100/55; PULSE 75; RESP 15; TEMP 36.8; O2SAT 97
[2019-02-17] MEDS: OXYCODONE IR 10 MG TABLET PO ×4 (03:11→12:51)
--- NOTE | 2019-02-17 07:46 | P.DS_ITS ---
History of Present Illness History of Present Illness Date Patient Seen: 02/17/19 Time Patient Seen: 07:46 Chief complaint: [id number] Narrative: Please see HPI previously recorded in chart. Discharge Providers Provider Date of admission: 02/15/19 06:19 Discharge Date: 02/17/19 Primary care physician: Juan Carlos Paredes MD Consults: 02/15/19 06:00 Consult to Anesthesiology Routine Comment: Consulting Provider: Anesthesiologist Reason for consultation: Regional block for post operative pain control 02/15/19 12:09 Consult to Discharge Planning Routine Comment: Consult to Physical Therapy Evaluate & Treat Comment: Physician Instructions: post op MELLY protocol Consult to Respiratory Therapy Evaluate & Treat Comment: Physician Instructions: Evaluate and treat Discharge provider: Niya Rojas PA-C Summary Hospital Course Discharge Diagnosis: s/p R total hip arthroplasty Hospital Course: The patient is a 68 year old female who has had progressively worsening right hip pain with radiographic changes consistent with arthritis. Non-operative management has failed and the patient has requested total hip replacement. The risks, benefits and alternatives to surgery were discussed with the patient prior to proceeding. Risks discussed included, but were not limited to, failure to relieve pain, leg length discrepancy, dislocation, stiffness, infection, nerve damage, deep venous thrombosis, pulmonary embolism, stroke, coma, heart attack, permanent paralysis and , as well as the potential need for eventual revision of the prosthetic. She was taken to the operating room where she underwent right posterior total hip arthroplasty with Dr. Madden which she tolerated well without complications. POD#1 some moderate to severe pain which was interfering with mobility. Oxycodone was increased and Vistaril added, with one time dose of IV Dilaudid which improved pain control. Voiding appropriately and tolerating a diet. She has a good support system at home. Patient has prescriptions at home. She is medically stable for discharge once cleared by PT. Status at Discharge Cognitive/behavioral status at discharge: oriented Functional status at discharge: uses cane/walker Overall status at discharge: patient is progressing back to baseline Exam Vital Signs (past 8 hours): - 02/17/19 03:00 Temperature 98.3 F Pulse Rate 75 Respiratory Rate 15 Blood Pressure 100/55 L Pulse Oximetry 97 Oxygen Delivery Method Room Air Oxygen Flow Rate 0 Narrative Exam Narrative: 68 year old female resting comfortably in bed in no acute distress. Aquacel dressing is CDI. Patient able to fire ankle flexors and extensors. Soft compressible calves. Palpable pedal pulse. Objective Labs Result Diagrams: 02/16/19 05:03 Discharge Plan Discharge Plan Patient Disposition: Home Discharge comment: Home if cleared by PT/stair training Discharge orders & Medications Prescriptions: New acetaminophen 325 mg Tablet 650 mg PO TID Qty: 40 RF: 0 aspirin 81 mg Tablet,Delayed Release (Dr/Ec) 81 mg PO BID Qty: 40 RF: 0 docusate sodium [DOK] 100 mg Capsule 100 mg PO BID Qty: 40 RF: 0 oxycodone 5 mg Tablet 5 mg PO Q3HR PRN (Reason: Pain, Moderate (4-6)) Qty: 1 RF: 0 hydroxyzine pamoate 25 mg Capsule 25 mg PO Q4HR PRN (Reason: Nausea or Muscle spasm) Qty: 1 RF: 0 Continued ferrous gluconate 324 MG tablet 324 mg PO DAILY Qty: 0 RF: 0 simvastatin 40 mg tablet 40 mg PO QAM Qty: 90 RF: 3 triamterene-hydrochlorothiazid 37.5-25 mg tablet 1 tab PO BID Qty: 180 RF: 11 metformin 500 mg tablet See Rx Instructions .ROUTE .COMPLEX Qty: 180 RF: 3 alprazolam 1 mg tablet 1 mg PO HSP PRN (Reason: anxiety) Qty: 90 RF: 0 omeprazole 20 mg capsule,delayed release(DR/EC) 20 mg PO BID Qty: 180 RF: 3 albuterol sulfate [Ventolin HFA] 90 mcg/actuation Hfa Aerosol Inhaler 2 puff INHALATION 6XD PRN (Reason: Shortness Of Breath) RF: 0 Qvar RediHaler 80 mcg/actuation Hfa Aerosol Breath Activated 1 inh INHALATION QD-BID RF: 0 triamcinolone acetonide 0.1 % cream 1 gm Topical BID PRN (Reason: Rash) RF: 0 Follow up/Referrals: Kori Madden MD [Physician] - 02/22/19 10:00 am [facility] Diet/Activity/Treatments Diet: Diet as Tolerated Activity: Weight bear as tolerated. Posterior hip precautions. Please use front wheel walker for support with walking. Cold/Heat Therapy: Ice packs as needed. Other treatments: Please refer to [facility] guide. Skin/Wound/Dressing Care Report to your healthcare provider any signs of infection, such as:: chills, fever, night sweats, unusual drainage and unusual redness Dressing: Aquacel dressing is to remain in place. If dressing becomes saturated please call the office. Visit Report/Discharge Packet Instructions: DI for Hip Replacement, How to Prevent Falls, DI for Postoperative Pain Visit Report Forms: Patient Portal/API, Stroke Signs & Symptoms Discharge Data Primary Care Provider: Juan Carlos Paredes [facility] Deep Vein Thrombosis/Pulmonary Embolism Present on Admission: No
[2019-02-17 08:00] VITALS: BP 120/64; PULSE 79; PULSE 80; RESP 15; RESP 18; TEMP 36.5; O2SAT 96; O2SAT 97
[2019-02-17] MEDS: ALBUTEROL HFA 60 PUFF/8 GM INH INH (09:23)
[2019-02-17] MEDS: BECLOMETHASONE 80 MCG INH 10.6 GM 1 PUFF INH (09:23)
[2019-02-17] MEDS: FERROUS GLUCONATE 324 MG TABLET PO (09:40)
[2019-02-17] MEDS: DOCUSATE 100 MG CAPSULE PO (09:40)
[2019-02-17] MEDS: POLYETHYLENE GLYCOL 3350 17 GM POWD.PACK PO (09:40)
[2019-02-17] MEDS: TRIAMTERENE/HCTZ 37.5/25 TABLET 1 CAP PO (09:40)
[2019-02-17] MEDS: INSULIN ASPART 100 UNIT/ML INSULN PEN SUBCUT ×2 (09:41→12:10)
[2019-02-17] MEDS: ACETAMINOPHEN 325 MG TABLET 650 MG PO (09:42)
[2019-02-17] MEDS: PANTOPRAZOLE 20 MG TABLET PO (09:42)
[2019-02-17] MEDS: ASPIRIN EC 81 MG TABLET PO (09:42)
[2019-02-17] MEDS: hydrOXYzine pamoate 25 MG CAPSULE PO (09:49)
--- NOTE | 2019-02-17 11:00 | PT.IPTN ---
Current Diagnoses Unilateral primary osteoarthritis, right hip (02/15/19) Surgery Performed Operation Date: 02/15/19 07:45 Actual Procedures p Total Hip Arthroplasty(Right) - Kori Madden MD Physical Therapy Treatment Note M2 PT-IP Current Condition Start: 02/15/19 13:49 Freq: NEEDED Status: Active Protocol: Document 02/16/19 10:05 HH (Rec: 02/16/19 11:44 [id number]) Physical Therapy Current Condition Current Condition Evaluation Date 02/16/19 Treatment Diagnosis R MELLY (post) , difficulty in walking, decreased activity tolerance Onset Date 02/15/19 Precautions Posterior Hip Precautions No Hip Flexion > 90 degrees,No Hip Internal Rotation,No Hip Adduction Weight Bearing Status Weight Bearing Status Weight Bear as Tolerated M3 PT-IP Subjective Start: 02/15/19 13:49 Freq: NEEDED Status: Active Protocol: Document 02/17/19 10:42 IRAM (Rec: 02/17/19 11:28 IRAM [email or web address]) Subjective Physical Therapy Visit Type Type Treatment Note Visit Start Time 10:42 Visit Stop Time 11:00 Total Visit Minutes 18 Notes Pt was willing to work with therapy. Pts present during treatment for caregiver training. Physical Therapy Visit Comments Patient Comments pt agreeable to do PT Patient Goals To return home with her . Therapy Pain Assessment Pain When Pain Assessed During Mobility Pain Present Pain Present Pain Reported Location Right Hip Scale Used Low pain reported, no number given M4 PT-IP Mobility and Gait Start: 02/15/19 13:49 Freq: NEEDED Status: Active Protocol: Document 02/17/19 10:42 IRAM (Rec: 02/17/19 11:28 IRAM [email or web address]) PT-Bed Mobility Assessment Supine to Sit Supine to Sit Standby Assistance,1 Person Assistance Sit to Supine Sit to Supine Standby Assistance,1 Person Assistance Scooting Scooting to Edge of Bed Standby Assistance PT-Transfer Assessment Sit to and From Stand Sit to and from Stand Contact Guard Assistance,1 Person Assistance,Use of Upper Extremities Equipment Transfer Assistive Device Gait Belt,Front Wheeled Walker Orthotic/Prosthetic Devices or Brace: No Transfers Transfer Destination Bed,Toilet Transfer Technique Pt ambulated w/ FWW Transfer Ability Level of Assist Contact Guard Assistance, Minimal Assistance,1 Person Assistance,Use of Upper Extremities Comments Mobility Comments Pt was in bed upon arrival from therapy. Reported that she is feeling much better today. SBA for all bed mobility, CGA to Min A for sit <>stand and stand<>sit to and from bed as well as commode. Cues to reach back for bed when sitting. Pts / caregiver safely assisted with transfers. Pt and caregiver report that they both feel safe during mobility. Pt left in bed w/ all needs in reach. SCDs refused. Gait Assessment Gait Gait Assistance Required: Contact Guard Assist,1 Person Assist Distance (Feet) 350 Able to Maintain Weight Bearing Status Yes During Gait Assistive Devices Assistive Device Gait Belt,Front Wheeled Walker Orthotic/Prosthetic Devices or Brace: No Gait Deviations General Gait Pattern Antalgic Factors Limiting Gait Function Factors Limiting Gait Function Decreased Activity Tolerance, Decreased Strength,Limited Range of Motion,Pain Comments Gait Comments Pt was able to ambulate from bed to toilet w/ FWW and CGA from caregiver. Then ambulated to staircase w/ FWW and back to room, totaling ~350 ft. Demonstrated step through gait pattern with normal distance between LE. Stair Climbing Assessment Evaluation Level of Assist On Stairs Contact Guard Assistance,1 Person Assistance Devices Stair Climbing Assistive Devices Right Railing Technique/Endurance Stair Climbing Direction Ascend and Descend Stair Climbing Technique Step to Step Number of Steps Climbed 3 Stair Climbing Set # Repetitions (reps) 1 Comments Stair Climbing Comments Pt was able to ascend/descend 3 steps w/ R railing and CGA from caregiver/. Instructed on proper body positioning (posterior going up and anterior coming down) and instructed patient on proper leg sequencing for ascend/descend. Pt and caregiver safely performed stair climbing and reported that they feel comfortable in theuir ability to complete at home. PT-Balance Assessment Sitting Balance and Reactions Static Sitting Balance Ability Normal Dynamic Sitting Balance Ability Normal Standing Balance and Reactions Static Standing Balance Ability Good Dynamic Standing Balance Ability Good Device Used FWW M5 PT-IP Objective Assessments Start: 02/15/19 13:49 Freq: NEEDED Status: Active Protocol: Document 02/16/19 10:05 (Rec: 02/16/19 11:44 [email or web address]) Orientation Orientation/Cognition Level of Alertness Alert Orientation Name,Age,Birthday,Month,Date, Year,Day of Week,Place, Situation Safety Awareness Understands Safety Issues Memory Description No Deficits Noted Gross Range of Motion Upper Extremity ROM Assessment Within Functional Limits Lower Extremity ROM Assessment Right Impaired Strength Upper Extremity Strength Assessment Within Functional Limits Lower Extremity Strength Assessment Right Impaired Hip 3/5 Coordination Assessment Gross Coordination Gross Coordination WNL Sensation Assessment Sensation Gross Sensation WNL Muscle Tone Muscle Tone WNL Yes M6 PT-IP Treatment Start: 02/15/19 13:49 Freq: NEEDED Status: Active Protocol: Document 02/17/19 10:42 IRAM (Rec: 02/17/19 11:28 IRAM [email or web address]) Physical Therapy Treatment Education Education Provided Precautions,Safety Other Treatments Other Treatment Performed Pt recalled 3/3 hip precations . M7 PT-IP Assessment and Plan Start: 02/15/19 13:49 Freq: NEEDED Status: Active Protocol: Document 02/17/19 10:42 IRAM (Rec: 02/17/19 11:28 IRAM [email or web address]) PT Summary Assessment and Plan Potential Rehabilitation Potential Excellent Summary Impairments Pain,ROM,Strength,Balance,Bed Mobility,Transfers,Gait, Activity Tolerance Progress Towards Goals Progressing Toward Goals Assessment Summary Comepleted caregiver training w/ pt and including bed mobility, transfers, gait training, and stair climbing. Pt was SBA for all bed mobility, CGA for sit<>stand and stand<>sit from bed and commode. CGA for all gait and stair training. Pt plans to go home w/ , cleared from PT for safe discharge home when medically stable. Goals Bed Mobility Goal Standby Assistance Transfer Goal Standby Assistance,Front Wheeled Walker Gait Goal Standby Assistance,Front Wheel Walker Gait Distance 150 Other Goals 2.5 NUSRAT with R rail SBA Days to Meet Goals 5 Frequency of Treatment Frequency Of Treatment Twice a Day Treatment Plan Physical Therapy Treatment Plan Bed Mobility Training,Transfer Training,Gait Training, Therapeutic Exercise,Balance Retraining,Post Op Education, Discharge Planning,Hot or Cold Pack,Neuromuscular Re-ed Recommendations To Nursing Amount of Assist Needed 1 Person Assist Discharge Recommendations PT Discharge Recommendations Home with Assistance, Outpatient PT
--- NOTE | 2019-02-17 11:47 | PC.NURSE ---
Addendum entered by Tiffani Aburto R.N. 02/17/19 14:17: Pt had shower, states is ready for discharge. Discharge summary packet reviewed with pt and her at bedside. Prescription for docusate given, other prescriptions on [facility] pt already has at home. No voiced concerns. Pt left unit in no distress, pain 4/10 with movement. Pt left unit at 1414 via wheelchair with [employer] escort and pt's to drive her home. Left with all belongings. Original Note: Day Shift- Pt reported 4/10 dull ache, uncomfortable with OOB movement with PT. Pain controlled with prn Oxycodone and Vistaril and scheduled Tylenol and Ibuprofen. Right hip aquacel dressing CDI, previous hemovac site covered with CDI gauze and tegaderm dressing. CMS+, PPP, edema surrounding right hip. Plan for shower after lunch and then discharge home around 1330 after next prn pain med dose.
[2019-02-17 12:00] VITALS: BP 124/64; PULSE 85; RESP 16; TEMP 36.9; O2SAT 96
[2019-02-17] MEDS: SODIUM CHLORIDE 0.9% FLUSH 10 ML IV (12:10)
== END 2019-02-17 14:14 | disposition home or self-care (01) | DRG 470 ==
PROVIDERS: Admitting Provider Orthopaedic Surgery; PCP Family Medicine; Visit Provider Orthopaedic Surgery
PROC: 0SR90JZ Replacement of Right Hip Joint with Synthetic Substitute, Open Approach (ICD-10-PCS; CPT 27130; principal; 2019-02-15 07:45)
DX: M16.11 Unilateral primary osteoarthritis, right hip (principal); Z96.642 Presence of left artificial hip joint; I10 Essential (primary) hypertension; E78.5 Hyperlipidemia, unspecified; K21.9 Gastro-esophageal reflux disease without esophagitis; E11.9 Type 2 diabetes mellitus without complications; J45.909 Unspecified asthma, uncomplicated; Z87.891 Personal history of nicotine dependence; Z79.84 Long term (current) use of oral hypoglycemic drugs; G89.18 Other acute postprocedural pain
CPT/HCPCS: 36415; 72170; 73502; 82962; 85014; 85018; 97116; 97161; 97530; C1776; C9290; J0171; J0690; J1100; J1170; J2250; J2405; J2704; J3010

== ENCOUNTER → 2019-10-06 09:14 | Outpatient (CLI) | payer MEDICARE, SELFPAY ==
[2019-02-15 13:50] VITALS: BMI 24.6
--- NOTE | 2019-10-06 | DI.MG.S_ITS ---
BILATERAL DIGITAL SCREENING MAMMOGRAM 3D/2D WITH CAD: 10/06/2019 CLINICAL: Routine screening. Comparison is made to exams dated: 07/07/2018 mammogram, 07/03/2017 mammogram, and 06/16/2016 mammogram - [facility]. There are scattered fibroglandular elements in both breasts. Current study was also evaluated with a Computer Aided Detection (CAD) system. No significant masses, calcifications, or other findings are seen in either breast. There has been no significant interval change. IMPRESSION: NEGATIVE There is no mammographic evidence of malignancy. A 1 year screening mammogram is recommended. This exam was interpreted at Station ID: [id number]. NOTE: For mammograms, a report in lay terms will be sent to the patient. Approximately 15% of breast malignancies will not be visualized mammographically. In the management of a palpable breast mass, a negative mammogram must not discourage biopsy of a clinically suspicious lesion. Electronically Signed By: Deondre dorman/perico:10/06/2019 10:36:40 letter sent: Normal Exam ACR BI-RADS Category 1: Negative 3341F
[2019-10-06 10:28] LABS: BUN Creatinine Ratio 29.9 (6-22); Blood Urea Nitrogen 20 mg/dL (7-17); Calcium 10.1 mg/dL (8.4-10.2); Carbon Dioxide 31 mmol/L (22-32); Chloride 93 mmol/L (98-107); Estimated Glomerular Filt Rate > 60.0 mL/min (>60); Glucose 91 mg/dL (80-110); HEMOLYSIS < 15 (0-50); Potassium 3.8 mmol/L (3.4-5.1); Sodium 132 mmol/L (137-145)
[2019-10-06 10:34] LABS: Hemoglobin A1C% w Est Avg Glu 6.4 % (4.0-6.0)
[2019-10-06 12:23] LABS: Creatinine Urine Random 49.4 mg/dL
[2019-10-06 12:30] LABS: Microalbumi Creatinin Ratio Ur 12.1 ug/mg CR (<30); Microalbumin Urine Random < 0.6 mg/dL (0-1.6)
== END ==
PROVIDERS: PCP Family Medicine; Referring Provider Family Medicine; Visit Provider Family Medicine
DX: Z12.31 Encounter for screening mammogram for malignant neoplasm of breast (principal); E11.9 Type 2 diabetes mellitus without complications; I10 Essential (primary) hypertension
CPT/HCPCS: 36415; 77063; 77067; 80048; 82043; 82570; 83036

== ENCOUNTER → 2019-11-04 09:25 | Outpatient (CLI) | payer MEDICARE, SELFPAY ==
[2019-02-15 13:50] VITALS: BMI 24.6
--- NOTE | 2019-11-04 | DI.US.S_ITS ---
PROCEDURE: US THYROID-limited INDICATIONS: NONTOXIC THYROID NODULE, extending into the substernal space. TECHNIQUE: Real-time scanning was performed of the thyroid gland, with image documentation. COMPARISON: [facility], US, BIOPSY LOCALIZATION/ASPIRATION, 07/13/2015, 8:56. [facility], US, THYROID, 06/18/2015, 13:31. [facility], US, US THYROID, 12/06/2018, 9:24. [facility], US, THYROID, 06/16/2016, 9:03. FINDINGS: The study was originally intended as a inferior left thyroid nodule biopsy. Sonographic visualization of the inferior left thyroid nodule was partially limited by its position, substernal, and extending into the mediastinum that are not accessible for ultrasound guided safe biopsy. The nodule can be seen by ultrasound but its position results in in excess ability for visualization of a biopsy needle from the sternal notch area beneath the left sternum and sternoclavicular junction area. IMPRESSION: The substernal inferior left thyroid nodule extends into an area that is inaccessible for a safe biopsy with concurrent accurate visualization of the needle tip. Blind biopsy into this area is not recommended. If clinically desired excisional biopsy would appear necessary. Dictated by: Rey Lennon M.D. on 11/04/2019 at 12:51 Approved by: Rey Lennon M.D. on 11/04/2019 at 13:04
== END ==
PROVIDERS: PCP Family Medicine; Referring Provider Family Medicine; Visit Provider Otolaryngology
DX: E04.1 Nontoxic single thyroid nodule (principal)
CPT/HCPCS: 76536

== ENCOUNTER → 2020-05-23 07:01 | Outpatient (CLI) | payer MEDICARE, SELFPAY ==
[2019-02-15 13:50] VITALS: BMI 24.6
[2020-05-23 07:22] LABS: Add Manual Diff / Slide Review NO; Basophils Absolute Auto 0 /uL (0-100); Basophils Percent Auto 0.5 % (0-2); Eosinophils Absolute Auto 500 /uL (0-450); Eosinophils Percent Auto 8.4 % (2-4); Hematocrit 41.1 % (36-46); Hemoglobin 13.6 g/dL (12.0-16.0); Lymphocytes Absolute Auto 1700 /uL (1100-4500); Lymphocytes Percent Auto 27.8 % (25-40); Mean Corpuscular HGB Conc 33.1 % (30-36); Mean Corpuscular Hemoglobin 31.8 PG (26-34); Mean Corpuscular Volume 95.9 fL (80-100); Monocytes Absolute Auto 700 /uL (0-900); Monocytes Percent Auto 11.4 % (3-14); Neutrophils Absolute Auto 3300 /uL (1500-7000); Neutrophils Percent Auto 51.9 % (50-75); Platelet Count 325 X10^3/uL (150-400); Red Blood Cell Count 4.29 X10^6/uL (4.0-5.2); Red Cell Distribution Width 13.9 % (11.6-14.8); White Blood Cell Count 6.3 X10^3/uL (4.5-11.0)
[2020-05-23 07:30] LABS: Hemoglobin A1C% w Est Avg Glu 6.3 % (4.0-6.0)
[2020-05-23 07:34] LABS: Creatinine Urine Random 71.4 mg/dL
[2020-05-23 07:34] LABS: Alanine Aminotransferase 18 IU/L (<35); Albumin 4.7 g/dL (3.5-5.0); Albumin Globulin Ratio 1.6 (1.0-2.8); Alkaline Phosphatase 75 U/L (38-126); Aspartate Aminotransferase 33 IU/L (14-36); BUN Creatinine Ratio 29.4 (6-22); Bilirubin Total 0.3 mg/dL (0.2-1.3); Blood Urea Nitrogen 20 mg/dL (7-17); Calcium 10.3 mg/dL (8.4-10.2); Carbon Dioxide 35 mmol/L (22-32); Chloride 93 mmol/L (98-107); Cholesterol 178 mg/dL (140-199); Estimated Glomerular Filt Rate > 60.0 mL/min (>60); Glucose 103 mg/dL (80-110); HDL Cholesterol 102 mg/dL (40-60); HEMOLYSIS < 15 (0-50); LDL Cholesterol Calculated 66 mg/dL (<100); Potassium 4.4 mmol/L (3.4-5.1); Sodium 133 mmol/L (137-145); Total Protein 7.7 g/dL (6.3-8.2); Triglycerides 52 mg/dL (35-150)
[2020-05-23 07:39] LABS: Microalbumi Creatinin Ratio Ur 18.2 ug/mg CR (<30); Microalbumin Urine Random 1.3 mg/dL (0-1.6)
[2020-05-23 08:13] LABS: Thyroid Stimulating Hormone 1.07 uIU/mL (0.47-4.68)
== END ==
PROVIDERS: PCP Family Medicine; Referring Provider Family Medicine; Visit Provider Family Medicine
DX: E04.1 Nontoxic single thyroid nodule (principal); E11.9 Type 2 diabetes mellitus without complications; E78.2 Mixed hyperlipidemia; E87.1 Hypo-osmolality and hyponatremia; I10 Essential (primary) hypertension
CPT/HCPCS: 36415; 80053; 80061; 82043; 82570; 83036; 84443; 85025

== ENCOUNTER → 2020-10-11 10:38 | Outpatient (CLI) | payer MEDICARE, SELFPAY ==
[2019-02-15 13:50] VITALS: BMI 24.6
--- NOTE | 2020-10-11 | DI.MG.S_ITS ---
BILATERAL DIGITAL SCREENING MAMMOGRAM 3D/2D WITH CAD: 10/11/2020 CLINICAL: Routine screening. Family history of breast cancer. Comparison is made to exams dated: 10/06/2019 mammogram, 07/07/2018 mammogram, and 07/03/2017 mammogram - [facility]. There are scattered fibroglandular elements in both breasts. Current study was also evaluated with a Computer Aided Detection (CAD) system. There are benign vascular calcifications in both breasts. No significant masses, calcifications, or other findings are seen in either breast. There has been no significant interval change. IMPRESSION: BENIGN There is no mammographic evidence of malignancy. A 1 year screening mammogram is recommended. This exam was interpreted at Station ID: [id number]. NOTE: For mammograms, a report in lay terms will be sent to the patient. Approximately 15% of breast malignancies will not be visualized mammographically. In the management of a palpable breast mass, a negative mammogram must not discourage biopsy of a clinically suspicious lesion. Electronically Signed By: Caleb griffith/perico:10/11/2020 10:59:42 letter sent: Normal Exam ACR BI-RADS Category 2: Benign Finding(s) 3342F
== END ==
PROVIDERS: PCP Family Medicine; Referring Provider Family Medicine; Visit Provider Family Medicine
DX: Z12.31 Encounter for screening mammogram for malignant neoplasm of breast (principal); Z80.3 Family history of malignant neoplasm of breast
CPT/HCPCS: 77063; 77067

== ENCOUNTER → 2020-11-24 09:23 | Outpatient (CLI) | payer MEDICARE, SELFPAY ==
[2019-02-15 13:50] VITALS: BMI 24.6
[2020-11-24 11:37] LABS: Add Manual Diff / Slide Review NO; Basophils Absolute Auto 100 /uL (0-100); Basophils Percent Auto 1.3 % (0-2); Eosinophils Absolute Auto 300 /uL (0-450); Eosinophils Percent Auto 5.1 % (2-4); Hematocrit 31.1 % (36-46); Hemoglobin 9.9 g/dL (12.0-16.0); Lymphocytes Absolute Auto 1300 /uL (1100-4500); Lymphocytes Percent Auto 21.8 % (25-40); Mean Corpuscular Hemoglobin 28.2 PG (26-34); Mean Corpuscular Volume 88.2 fL (80-100); Monocytes Absolute Auto 600 /uL (0-900); Monocytes Percent Auto 9.5 % (3-14); Neutrophils Absolute Auto 3700 /uL (1500-7000); Neutrophils Percent Auto 62.3 % (50-75); Platelet Count 405 X10^3/uL (150-400); Red Blood Cell Count 3.53 X10^6/uL (4.0-5.2)
[2020-11-24 12:01] LABS: Alanine Aminotransferase 14 IU/L (<35); Albumin 4.3 g/dL (3.5-5.0); Albumin Globulin Ratio 1.7 (1.0-2.8); Alkaline Phosphatase 55 U/L (38-126); Aspartate Aminotransferase 29 IU/L (14-36); BUN Creatinine Ratio 31.7 (6-22); Bilirubin Total 0.2 mg/dL (0.2-1.3); Blood Urea Nitrogen 19 mg/dL (7-17); Calcium 9.2 mg/dL (8.4-10.2); Carbon Dioxide 26 mmol/L (22-32); Chloride 97 mmol/L (98-107); Cholesterol 166 mg/dL (140-199); Estimated Glomerular Filt Rate > 60.0 mL/min (>60); Globulin 2.6 g/dL (1.7-4.1); Glucose 80 mg/dL (80-110); HEMOLYSIS < 15 (0-50); Potassium 4.2 mmol/L (3.4-5.1); Sodium 131 mmol/L (137-145); Total Protein 6.9 g/dL (6.3-8.2); Triglycerides 43 mg/dL (35-150)
[2020-11-24 12:16] LABS: HDL Cholesterol 116 mg/dL (40-60); LDL Cholesterol Calculated 41 mg/dL (<100)
[2020-11-24 12:31] LABS: Hemoglobin A1C% w Est Avg Glu 5.5 % (4.0-6.0)
[2020-11-24 12:32] LABS: TSH w/ Reflex to FT4 0.51 uIU/mL (0.47-4.68)
== END ==
PROVIDERS: PCP Family Medicine; Referring Provider Family Medicine; Visit Provider Family Medicine
DX: I10 Essential (primary) hypertension (principal); E04.1 Nontoxic single thyroid nodule; E11.9 Type 2 diabetes mellitus without complications; E78.2 Mixed hyperlipidemia
CPT/HCPCS: 36415; 80053; 80061; 83036; 84443; 85025

== ENCOUNTER → 2020-12-24 10:36 | Outpatient (CLI) | payer MEDICARE, SELFPAY ==
[2019-02-15 13:50] VITALS: BMI 24.6
[2020-12-24 14:40] LABS: COVID19 -Nasal RAPID Negative (Negative)
== END ==
PROVIDERS: PCP Family Medicine; Referring Provider Nurse Practitioner Family; Visit Provider Nurse Practitioner Family
DX: Z20.822 Contact with and (suspected) exposure to COVID-19 (principal); Z01.812 Encounter for preprocedural laboratory examination
CPT/HCPCS: 87635; C9803

== ENCOUNTER 2020-12-25 06:44 | Day surgery (SDC) | payer MEDICARE, SELFPAY ==
[2019-02-15 13:50] VITALS: BMI 24.6
[2020-12-25] MEDS: PROPARACAINE 0.5% OPHTH SOL 2 DROPS EYE-OP (07:19)
[2020-12-25] MEDS: CATARACT EYE COMPOUND (10 DROPS/SYRINGE) 3 DROPS EYE-OP (07:27)
[2020-12-25 07:29] VITALS: BP 151/73; PULSE 93; RESP 18; TEMP 36.6; O2SAT 100; BMI 22.3
--- NOTE | 2020-12-25 08:03 | P.OP_ITS ---
Operative Date/Time/Diagnoses Pre-op diagnosis: Nuclear cataract right eye Procedure & Clinicians Procedure: Cataract Surgery Same procedure as scheduled: Yes Surgeon: Hernan Madrigal Anesthesia Type: MAC +/- and Sedation Operative Notes Procedure in detail: Patient brought to the operating suite. Tetracaine drops placed in the right eye. Marking instrument was used to tiffany the vertical and horizontal meridians. Patient was prepped and draped in sterile manner. Wire lid speculum was placed in the eye. Marking instrument was used to tiffany the 30 degree meridians. Betadine drops were placed on the eye. This was irrigated. Lidocaine jelly was placed on the eye. A paracentesis port was created with a side-port blade. 0.1 mL 1% preservative free lidocaine was injected into the anterior chamber. The anterior chamber was deepened with viscoelastic. 2.6 mm keratome was used to create a temporal clear corneal incision. Cystotome and Utr scott forceps were used to create continuous tear capsulorrhexis. Balanced salt solution was used to hydro dissect the nucleus. The phacoemulsification handpiece was inserted and the nucleus was removed using the stop and chop technique. The irrigation aspiration handpiece was inserted and the remaining cortex was removed. Anterior chamber was deepened with viscoelastic. An Keene [id number] intraocular lens with a power of 20.0 was injected into the capsular bag. Irrigation aspiration handpiece was inserted and the remaining viscoelastic was removed. The lens was rotated to the 30 degree meridian. Incision was hydrated with balanced salt solution and found to be leak free with pressure with Weck- Mariely sponges. 0.1 mL Vigamox injected anterior chamber. 0.3 mL Kenalog 10 mg was injected subconjunctivally. Lid speculum was removed. The patient left the operating room in excellent condition. Complications: none Post-operative Condition: stable Disposition: same day surgery
--- NOTE | 2020-12-25 08:03 | PM.PREOP ---
Pre-operative Note Interval Note History & Physical reviewed/Exam performed by Physician: Yes Changes to H&P: No
[2020-12-25] MEDS: PHENYLEPHRINE/LIDOCAINE VIAL (OR) 0.2 ML EYE-OP (08:19)
[2020-12-25] MEDS: MOXIFLOXACIN INJ 4 MG/0.8 ML VIAL 0.5 MG EYE-OP (08:19)
[2020-12-25] MEDS: LIDOCAINE 2% (GLYDO) 6 ML GEL TOP (08:19)
[2020-12-25] MEDS: HYALURONATE SODIUM 30 MG-10 MG/ML SYRINGES 1 BOX INTRAOCULA (08:19)
[2020-12-25] MEDS: TRIAMCINOLONE 50 MG/5 ML VIAL INJ (08:20)
[2020-12-25] MEDS: TETRACAINE 0.5% OPHTH DROPS 4 ML 2 DROPS EYE-OP (08:20)
[2020-12-25] MEDS: BALANCED SALT IRRIG SOLN NO.2 500 ML, EPINEPHrine 1 MG IRR (08:20)
[2020-12-25 08:49] VITALS: BP 123/76; PULSE 86; RESP 16; TEMP 36.6; O2SAT 98
[2020-12-25 09:04] VITALS: BP 138/85; PULSE 80; RESP 16; TEMP 36.4; O2SAT 97
== END 2020-12-25 09:06 | disposition home or self-care (01) ==
PROVIDERS: PCP Family Medicine; Referring Provider Ophthalmology; Visit Provider Ophthalmology
PROC: (CPT 66984; principal; 2020-12-25 08:15)
DX: H25.11 Age-related nuclear cataract, right eye (principal); E11.9 Type 2 diabetes mellitus without complications; Z79.84 Long term (current) use of oral hypoglycemic drugs; E78.00 Pure hypercholesterolemia, unspecified; D64.9 Anemia, unspecified; J45.909 Unspecified asthma, uncomplicated; I10 Essential (primary) hypertension
CPT/HCPCS: 66984; J0171; J2250; J3010; J3301; V2787

== ENCOUNTER → 2021-01-07 08:25 | Outpatient (CLI) | payer MEDICARE, SELFPAY ==
[2019-02-15 13:50] VITALS: BMI 24.6
[2021-01-07 15:19] LABS: COVID19 -Nasal RAPID Negative (Negative)
== END ==
PROVIDERS: PCP Family Medicine; Visit Provider Nurse Practitioner Family
DX: Z20.822 Contact with and (suspected) exposure to COVID-19 (principal); Z01.812 Encounter for preprocedural laboratory examination
CPT/HCPCS: 87635

== ENCOUNTER 2021-01-08 06:40 | Day surgery (SDC) | payer MEDICARE, SELFPAY ==
[2019-02-15 13:50] VITALS: BMI 24.6
[2021-01-08] MEDS: PROPARACAINE 0.5% OPHTH SOL 2 DROPS EYE-OP (07:05)
[2021-01-08] MEDS: CATARACT EYE COMPOUND (10 DROPS/SYRINGE) 3 DROPS EYE-OP (07:11)
[2021-01-08 07:12] VITALS: BP 140/70; PULSE 98; RESP 16; TEMP 36.6; O2SAT 97; BMI 22.3
--- NOTE | 2021-01-08 07:33 | P.OP_ITS ---
Operative Date/Time/Diagnoses Pre-op diagnosis: Nuclear Cataract Left eye Post-op diagnosis: same Procedure & Clinicians Same procedure as scheduled: Yes Surgeon: Hernan Madrigal Anesthesia Type: MAC +/- and Sedation Operative Notes Procedure in detail: Patient brought to the operating suite. Tetracaine drops placed in the left eye. Marking instrument was used to tiffany the vertical and horizontal meridians. Patient was prepped and draped in sterile manner. Wire lid speculum was placed in the eye. Marking instrument was used to tiffany the 110 degree meridian. Betadine drops were placed on the eye. This was irrigated. Lidocaine jelly was placed on the eye. A paracentesis port was created with a side-port blade. 0.1 mL 1% preservative free lidocaine was injected into the anterior chamber. The anterior chamber was deepened with viscoelastic. 2.6 mm keratome was used to create a temporal clear corneal incision. Cystotome and Utrata forceps were used to create continuous tear capsulorrhexis. Balanced salt solution was used to hydro dissect the nucleus. The phacoemulsification handpiece was inserted and the nucleus was removed using the stop and chop technique. The irrigation aspiration handpiece was inserted and the remaining cortex was removed. Anterior chamber was deepened with viscoelastic. An Keene [id number] intraocular lens with a power of 20.0 was injected into the capsular bag. Irrigation aspiration handpiece was inserted and the remaining viscoelastic was removed. The lens was rotated to the 110 degree meridian. Incision was hydrated with balanced salt solution and found to be leak free with pressure with Weck- Mariely sponges. 0.1 mL Vigamox injected anterior chamber. 0.3 mL Kenalog 10 mg was injected subconjunctivally. Lid speculum was removed. The patient left the operating room in excellent condition. Complications: none Post-operative Condition: stable Disposition: same day surgery
--- NOTE | 2021-01-08 07:33 | PM.PREOP ---
Pre-operative Note Interval Note History & Physical reviewed/Exam performed by Physician: Yes Changes to H&P: No
[2021-01-08] MEDS: PHENYLEPHRINE/LIDOCAINE VIAL (OR) 0.2 ML EYE-OP (07:45)
[2021-01-08] MEDS: HYALURONATE SODIUM 30 MG-10 MG/ML SYRINGES 1 BOX INTRAOCULA (07:45)
[2021-01-08] MEDS: TRIAMCINOLONE 50 MG/5 ML VIAL INJ (07:46)
[2021-01-08] MEDS: BALANCED SALT IRRIG SOLN NO.2 500 ML, EPINEPHrine 1 MG IRR (07:46)
[2021-01-08] MEDS: MOXIFLOXACIN INJ 4 MG/0.8 ML VIAL 0.5 MG EYE-OP (07:46)
[2021-01-08] MEDS: LIDOCAINE 2% (GLYDO) 6 ML GEL TOP (07:47)
[2021-01-08] MEDS: TETRACAINE 0.5% OPHTH DROPS 4 ML 2 DROPS EYE-OP (07:47)
[2021-01-08 08:10] VITALS: BP 125/65; PULSE 86; RESP 16; TEMP 36.9; O2SAT 100
== END 2021-01-08 08:26 | disposition home or self-care (01) ==
PROVIDERS: PCP Family Medicine; Referring Provider Ophthalmology; Visit Provider Ophthalmology
PROC: (CPT 66984; principal; 2021-01-08 07:45)
DX: H25.12 Age-related nuclear cataract, left eye (principal); E11.9 Type 2 diabetes mellitus without complications; E78.00 Pure hypercholesterolemia, unspecified; D64.9 Anemia, unspecified; J45.909 Unspecified asthma, uncomplicated; I10 Essential (primary) hypertension; Z79.84 Long term (current) use of oral hypoglycemic drugs
CPT/HCPCS: 66984; J0171; J2250; J3301; V2787

== ENCOUNTER → 2021-06-08 08:09 | Outpatient (CLI) | payer MEDICARE, SELFPAY ==
[2019-02-15 13:50] VITALS: BMI 24.6
[2021-06-08 08:51] LABS: Add Manual Diff / Slide Review NO; Basophils Absolute Auto 100 /uL (0-100); Basophils Percent Auto 1.5 % (0-2); Eosinophils Absolute Auto 400 /uL (0-450); Eosinophils Percent Auto 6.2 % (2-4); Hematocrit 30.2 % (36-46); Hemoglobin 9.6 g/dL (12.0-16.0); Lymphocytes Absolute Auto 1300 /uL (1100-4500); Lymphocytes Percent Auto 21.2 % (25-40); Mean Corpuscular HGB Conc 31.8 % (30-36); Mean Corpuscular Hemoglobin 22.6 PG (26-34); Mean Corpuscular Volume 71.1 fL (80-100); Monocytes Absolute Auto 600 /uL (0-900); Monocytes Percent Auto 9.1 % (3-14); Neutrophils Absolute Auto 3900 /uL (1500-7000); Platelet Count 461 X10^3/uL (150-400); Red Blood Cell Count 4.25 X10^6/uL (4.0-5.2); Red Cell Distribution Width 18.7 % (11.6-14.8); White Blood Cell Count 6.3 X10^3/uL (4.5-11.0)
[2021-06-08 09:07] LABS: BUN Creatinine Ratio 24.6 (6-22); Blood Urea Nitrogen 16 mg/dL (7-17); Calcium 10.2 mg/dL (8.4-10.2); Carbon Dioxide 28 mmol/L (22-32); Chloride 101 mmol/L (98-107); Estimated Glomerular Filt Rate > 60.0 mL/min (>60); Glucose 94 mg/dL (80-110); HEMOLYSIS < 15 (0-50); Potassium 4.9 mmol/L (3.4-5.1); Sodium 135 mmol/L (137-145)
== END ==
PROVIDERS: PCP Family Medicine; Referring Provider Family Medicine; Visit Provider Family Medicine
DX: E78.1 Pure hyperglyceridemia (principal); D64.9 Anemia, unspecified; E87.1 Hypo-osmolality and hyponatremia
CPT/HCPCS: 36415; 80048; 85025

== ENCOUNTER → 2021-06-10 10:18 | Outpatient (CLI) | payer MEDICARE, SELFPAY ==
[2019-02-15 13:50] VITALS: BMI 24.6
--- NOTE | 2021-06-10 10:20 | DI.RAD.S_ITS ---
PROCEDURE: XR LUMBAR SPINE 2-3V INDICATIONS: low back pain with ridculopathy TECHNIQUE: 2 views of the lumbar spine were acquired. COMPARISON: [facility], , L-SPINE 2-3 VIEWS, 07/26/2014, 10:24. FINDINGS: Bones: 5 [id number] vertebrae are present. There is grade 1 anterolisthesis of L4 on L5. No vertebral body compression fractures. No suspicious bony lesions. Degenerative disc disease is present, moderate at L2-L3 and L4-L5 and L5-S1, mild at L3-L4. Moderate facet arthropathy at L3-L4, L4-L5 and L5-S1. 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 Soft tissues: Overlying bowel gas pattern is normal. Vascular calcifications consistent with atherosclerosis. IMPRESSION: Moderate degenerative disc and facet disease in lumbar spine. Dictated by: Jennifer Alberts M.D. on 06/10/2021 at 17:31 Approved by: Jennifer Alberts M.D. on 06/10/2021 at 17:34
== END ==
PROVIDERS: PCP Family Medicine; Referring Provider Family Medicine; Visit Provider Family Medicine
DX: M51.16 Intervertebral disc disorders with radiculopathy, lumbar region (principal); M51.17 Intervertebral disc disorders with radiculopathy, lumbosacral region; M47.26 Other spondylosis with radiculopathy, lumbar region; M47.27 Other spondylosis with radiculopathy, lumbosacral region
CPT/HCPCS: 72100

== ENCOUNTER → 2021-10-14 15:35 | Outpatient (CLI) | payer MEDICARE, SELFPAY ==
[2019-02-15 13:50] VITALS: BMI 24.6
--- NOTE | 2021-10-14 | DI.MG.S_ITS ---
BILATERAL DIGITAL SCREENING MAMMOGRAM 3D/2D WITH CAD: 10/14/2021 CLINICAL: Routine screening. Family history of breast cancer. Comparison is made to exams dated: 10/11/2020 mammogram, 10/06/2019 mammogram, 07/07/2018 mammogram, and 07/03/2017 mammogram - [facility]. There are scattered fibroglandular elements in both breasts. Current study was also evaluated with a Computer Aided Detection (CAD) system. There are benign vascular calcifications in both breasts. No significant masses, calcifications, or other findings are seen in either breast. There has been no significant interval change. IMPRESSION: BENIGN There is no mammographic evidence of malignancy. A 1 year screening mammogram is recommended. Based on the Tyrer Cuzick model (a risk assessment model) the patient's lifetime risk is 10.3% and her 10 year risk is 7.1%. According to the ACR, ACS, and NCCN guidelines, an annual breast MRI exam along with mammogram is recommended if the patient's lifetime risk is 20% or greater. This exam was interpreted at Station ID: [id number]. NOTE: For mammograms, a report in lay terms will be sent to the patient. Approximately 15% of breast malignancies will not be visualized mammographically. In the management of a palpable breast mass, a negative mammogram must not discourage biopsy of a clinically suspicious lesion. Electronically Signed By: João steiner/perico:10/15/2021 09:36:44 letter sent: Normal Exam ACR BI-RADS Category 2: Benign Finding(s) 3342F
== END ==
PROVIDERS: PCP Family Medicine; Referring Provider Family Medicine; Visit Provider Family Medicine
DX: Z12.31 Encounter for screening mammogram for malignant neoplasm of breast (principal); Z80.3 Family history of malignant neoplasm of breast
CPT/HCPCS: 77063; 77067

== ENCOUNTER → 2021-11-06 08:14 | Outpatient (CLI) | payer MEDICARE, SELFPAY ==
[2019-02-15 13:50] VITALS: BMI 24.6
--- NOTE | 2021-11-06 08:17 | DI.MRI.S_ITS ---
PROCEDURE: MR LUMBAR SPINE WO CON INDICATIONS: Chronic progressive lumbar radiculopathy bilateral TECHNIQUE: Noncontrast sagittal T1 spin echo and T2 fast echo, sagittal STIR, and T2 fast spin echo through the lumbar spine. In cases with scoliosis, additional coronal T2 fast spin echo may be performed. COMPARISON: None. FINDINGS: Image quality: Excellent. Alignment and Curvature: There is minimal anterolisthesis seen at the L4-L5 level. No definite associated pars defects can be seen on these images. There is minimal retrolisthesis at L5-S1. Bone Marrow: Marrow is of normal overall signal. No acute vertebral body compression fractures. Incidental note is made of a limbus vertebral body involving the anterior superior portion of the L3 vertebral body. Spinal Cord: Conus medullaris terminates at the L1-L2 level. Visualized cord demonstrates normal signal and size. Paraspinous Soft Tissues: No paravertebral masses. T12-L1: Normal appearance. L1-L2: Normal appearance. L2-L3: Hymo-rc-bbefgbqt loss disc height and disc signal can be seen. Mild to moderate disc bulge is seen at this level. There is a mild superimposed disc extrusion, with mild inferior migration of the disc material. Mild facet joint hypertrophy is seen. There is uhlh-hb-hofzajtn right-sided and moderate left-sided neural foraminal narrowing seen. Mild central canal narrowing is seen. L3-L4: The disc height is well-preserved. Loss of disc signal is seen at this level. Mild to moderate disc bulge is seen. Mild to moderate facet hypertrophy is seen. There is at least moderate bilateral neural foraminal narrowing seen. Mild to moderate central canal narrowing is seen. L4-L5: Mild loss of disc height is seen. Loss of disc signal is seen. Moderate generalized disc bulge is seen. There is a superimposed central disc protrusion. Prominent facet hypertrophy is seen. Fluid is seen within the facet joints themselves. There is moderate to severe bilateral neural foraminal narrowing seen, with an associated a degree of compression seen upon the exiting nerve roots. Moderate to severe central canal narrowing is also seen. L5-S1: Moderate to severe loss of disc height and disc signal can be seen. Reactive marrow endplate changes are seen, which are hyperintense on T1-weighted and T2-weighted imaging and most consistent with fatty metaplasia (Modic type II changes). Moderate generalized disc bulge is seen. There is a superimposed central disc protrusion. At least moderate facet hypertrophy can be seen at this level. There is moderate to severe bilateral neural foraminal narrowing seen, with an associated a degree of compression seen upon the exiting nerve roots. Mild central canal narrowing is seen. IMPRESSION: Lumbar spine degenerative changes are seen, which are worst at L4-L5 and L5-S1. Dictated by: Mathew Piedra M.D. on 11/06/2021 at 11:09 Approved by: Mathew Piedra M.D. on 11/06/2021 at 11:12
== END ==
PROVIDERS: PCP Family Medicine; Referring Provider Physical Medicine & Rehabilitation; Visit Provider Physical Medicine & Rehabilitation
DX: M48.062 Spinal stenosis, lumbar region with neurogenic claudication (principal); M43.16 Spondylolisthesis, lumbar region; M47.26 Other spondylosis with radiculopathy, lumbar region; M47.27 Other spondylosis with radiculopathy, lumbosacral region
CPT/HCPCS: 72148

== ENCOUNTER → 2021-11-27 07:47 | Outpatient (CLI) | payer MEDICARE, SELFPAY ==
[2019-02-15 13:50] VITALS: BMI 24.6
[2021-11-27 09:03] LABS: Hemoglobin A1C% w Est Avg Glu 5.9 % (4.0-6.0)
== END ==
PROVIDERS: PCP Family Medicine; Referring Provider Family Medicine; Visit Provider Family Medicine
DX: E11.9 Type 2 diabetes mellitus without complications (principal)
CPT/HCPCS: 36415; 83036

== ENCOUNTER → 2021-12-02 09:58 | Outpatient (CLI) | payer MEDICARE, SELFPAY ==
[2019-02-15 13:50] VITALS: BMI 24.6
[2021-12-02 13:09] LABS: COVID19 -Nasal RAPID Negative (Negative)
== END ==
PROVIDERS: PCP Family Medicine; Visit Provider Physical Medicine & Rehabilitation
DX: Z20.822 Contact with and (suspected) exposure to COVID-19 (principal)
CPT/HCPCS: 87635; C9803

== ENCOUNTER 2021-12-03 13:00 | Outpatient (CLI) | payer MEDICARE, SELFPAY ==
[2019-02-15 13:50] VITALS: BMI 24.6
[2021-12-03] VITALS (8 sets, daily range): BP systolic 119–177; BP diastolic 59–83; PULSE 91–98; RESP 15–21; TEMP 36.4; O2SAT 98–100
--- NOTE | 2021-12-03 13:10 | DI.RAD.S_ITS ---
PROCEDURE: PAIN L INTERLAMINAR/CAUDAL INJ INDICATIONS: SPONDYLOSIS COMPARISON: [facility], CR, XR LUMBAR SPINE 2-3V, 06/10/2021, 10:11. [facility], MR, MR LUMBAR SPINE WO CON, 11/06/2021, 8:41. FINDINGS: Fluoroscopic spot filming was performed to verify placement of a spinal needle at the L5-S1 level, as labeled on the films. Appropriate location of the needle tip was confirmed by injection of iodinated contrast. IMPRESSION: No significant intraprocedural abnormality. Dictated by: Mathew Piedra M.D. on 12/03/2021 at 13:56 Approved by: Mathew Piedra M.D. on 12/03/2021 at 13:56
[2021-12-03] MEDS: BUPIVACAINE 0.25% (PF) VIAL 2 ML INJ (13:55)
[2021-12-03] MEDS: DEXAMETHASONE 10 MG/ML VIAL 20 MG INJ (13:55)
[2021-12-03] MEDS: IOPAMIDOL 15 ML VIAL 3 ML INJ (13:55)
[2021-12-03] MEDS: BETAMETHASONE 30 MG/5 ML MDV 6 MG INJ (13:55)
[2021-12-03] MEDS: MIDAZOLAM 2 MG/2 ML VIAL 4 MG IV (13:56)
--- NOTE | 2021-12-03 14:01 | P.PCN_ITS ---
Date/Time/Diagnoses Date of procedure: 12/03/21 Time of procedure: 14:02 Pre-procedure diagnosis: 1. HNP WITH RADICULAR FEATURES, 2. MULTILEVEL CENTRAL STENOSIS, Post-procedure diagnosis: same Procedure Notes Procedure: 1. FLUOROSCOPICALLY GUIDED CONTRAST CONTROLLED INTERLAMINAR EPIDURAL STEROID INJECTION -L4/5 Indications: Rosie is referred by Dr. Paredes for treatment of Bilateral Foraminal Stenosis R>L LE symptoms. Physician: Mejia Arevalo Total Fluoroscopy time (seconds): 6 Total sedation minutes: 10 Complications: none Procedure in detail & Post-procedure care: FINDINGS Multilevel Central Spinal Stenosis with Nerve Root Compression DESCRIPTION OF PROCEDURE Fluoroscopically guided, contrast-controlled L4/5 translaminar epidural steroid injection. Following review of allergy and review of potential side effects and complications, including, but not necessarily limited to, infection, allergic reaction, local tissue breakdown, temporary as well as permanent nerve injury, paralysis, stroke and possible , the patient indicated that the patient understood and agreed to proceed. An informed consent document was signed by the patient, witnessed by a nurse, and placed in the patient's chart. Additionally, other treatment options including modalities, medications, and physical therapy were reviewed with the patient. After review of previous anaesthesic history and IV conscious sedation the patient was deemed safe to proceed with today?s procedure with IV conscious sedation as ASA class II designation. Safety time-out was performed to confirm patient ID, procedure to be performed and site of procedure. IV sedation was accomplished with a combination of 4mg of Versed was administered by the RN after DO order, titrated to patient comfort during the course of the procedure while the patient remained responsive to all verbal commands In the prone position, following sterile prep and drape of the lumbar region, the L4/5 translaminar space was identified fluoroscopically. The skin was anesthetized via a 25-gauge, 1.5inch needle with 1% lidocaine solution. At this point, a 22-gauge short bevel spinal needle was atraumatically introduced and advanced under fluoroscopic guidance into the region of the L4/5 translaminar space. Depth was confirmed on lateral view. Radiological data, including multiple fluoroscopic views of the lumbar spine, reveal a spinal needle at the L4/5 translaminar space. Lateral views then show placement of the needle in the epidural space. Subsequent views show contrast material flowing superiorly and inferiorly in the epidural space. No vascular or intrathecal uptake is observed. At this point, using loss of resistance technique with saline and air, the epidural space was entered. This was confirmed following negative aspiration with injection of approximately 1.5cc of Isovue 200, showing excellent epidural flow without vascular or intrathecal uptake. At this point, 1cc of 1% lidocaine solution combined with 3cc or 20mg of dexamethasone and 6mg betamethasone was injected without incident. The patient tolerated the procedure well without signs or symptoms of complications prior to transfer to the recovery area continued monitoring without incident. The patient was then transferred to the recovery area where they were observed for an appropriate period of time after the injection. The patient reported a VAS score of 7 prior to the procedure and a post- procedure VAS of 1. POST OP INSTRUCTIONS The patient was provided a Pain Log to continue to record their response to the target-specific procedure prior to follow-up visit with their referring physician. Additionally, specific post-injection care instructions and a contact number to our office were provided if concerns arise regarding possible complications associated with the procedure are suspected.
== END 2021-12-03 14:20 | disposition home or self-care (01) ==
LOC: RAD 13:04
PROVIDERS: PCP Family Medicine; Referring Provider Physical Medicine & Rehabilitation; Visit Provider Physical Medicine & Rehabilitation
DX: M48.062 Spinal stenosis, lumbar region with neurogenic claudication (principal); M51.16 Intervertebral disc disorders with radiculopathy, lumbar region
CPT/HCPCS: 62323; 99152; J0702; J1100; J2250; J3490

== ENCOUNTER → 2021-12-16 12:16 | Outpatient (CLI) | payer MEDICARE, SELFPAY ==
[2019-02-15 13:50] VITALS: BMI 24.6
[2021-12-16 13:01] LABS: Hematocrit 27.9 % (36-46); Hemoglobin 8.6 g/dL (12.0-16.0); Mean Corpuscular HGB Conc 30.9 % (30-36); Mean Corpuscular Hemoglobin 22.1 PG (26-34); Mean Corpuscular Volume 71.5 fL (80-100); Platelet Count 423 X10^3/uL (150-400); Red Blood Cell Count 3.91 X10^6/uL (4.0-5.2); Red Cell Distribution Width 19.3 % (11.6-14.8); White Blood Cell Count 6.2 X10^3/uL (4.5-11.0)
[2021-12-16 13:08] LABS: Neutrophils Absolute Manual 4960 /uL (3000-5900); Poikilocytosis 1+; Total Cells Counted 100
[2021-12-16 19:24] LABS: HEMOLYSIS < 15 (0-50); Iron 27 ug/dL (37-170)
[2021-12-16 19:40] LABS: Percent Iron Saturation 6 % (15-50); Total Iron Binding Capacity 480 ug/dL (265-497); Transferrin 348 mg/dL (206-381)
[2021-12-16 20:06] LABS: Ferritin 6 ng/mL (11-264)
[2021-12-16 20:37] LABS: Folate > 20.0 ng/mL (2.76-20.0); Vitamin B12 337 pg/mL (239-931)
== END ==
PROVIDERS: PCP Family Medicine; Referring Provider Family Medicine; Visit Provider Family Medicine
DX: D64.9 Anemia, unspecified (principal)
CPT/HCPCS: 36415; 82607; 82728; 82746; 83540; 83550; 85025

== ENCOUNTER 2022-01-14 09:06 | Outpatient (CLI) | payer MEDICARE, SELFPAY ==
[2019-02-15 13:50] VITALS: BMI 24.6
[2022-01-09 15:05] VITALS: BMI 24.6
[2022-01-14] VITALS (8 sets, daily range): BP systolic 145–188; BP diastolic 7–89; PULSE 89–96; RESP 12–20; TEMP 36.7; O2SAT 97–100
--- NOTE | 2022-01-14 09:11 | DI.RAD.S_ITS ---
PROCEDURE: PAIN L INTERLAMINAR/CAUDAL INJ INDICATIONS: SPONDYLOSIS COMPARISON: [facility], XA, PAIN L INTERLAMINAR/CAUDAL INJ, 12/03/2021, 13:51. FINDINGS: Fluoroscopic spot filming was performed to verify placement of spinal needles at the L5-S1 interlaminar space, as labeled on the films. Appropriate location(s) of the needle tip(s) was confirmed by injection of iodinated contrast. IMPRESSION: Access needle at the L5-S1 interlaminar space for L5-S1 translaminar epidural steroid injection. Dictated by: Debby Carlton MD, PhD on 01/14/2022 at 14:14 Approved by: Debby Carlton MD, PhD on 01/14/2022 at 14:15
[2022-01-14] MEDS: IOPAMIDOL 15 ML VIAL 3 ML INJ (10:43)
[2022-01-14] MEDS: BUPIVACAINE 0.25% (PF) VIAL 2 ML INJ (10:43)
[2022-01-14] MEDS: BETAMETHASONE 30 MG/5 ML MDV 6 MG INJ (10:43)
[2022-01-14] MEDS: MIDAZOLAM 2 MG/2 ML VIAL 4 MG IV (10:44)
[2022-01-14] MEDS: DEXAMETHASONE 10 MG/ML VIAL 20 MG INJ (10:44)
--- NOTE | 2022-01-14 10:48 | P.PCN_ITS ---
Date/Time/Diagnoses Date of procedure: 01/14/22 Time of procedure: 10:48 Pre-procedure diagnosis: 1. HNP WITH RADICULAR FEATURES, 2. MULTILEVEL CENTRAL STENOSIS, Post-procedure diagnosis: same Procedure Notes Procedure: 1. FLUOROSCOPICALLY GUIDED CONTRAST CONTROLLED INTERLAMINAR EPIDURAL STEROID INJECTION - L5/S1 Indications: Rosie is referred by Dr. Paredes for treatment of Bilateral Foraminal Stenosis L>R LE symptoms. Physician: Mejia Arevalo Total Fluoroscopy time (seconds): 6 Total sedation minutes: 10 Complications: none Procedure in detail & Post-procedure care: FINDINGS Multilevel Central Spinal Stenosis with Nerve Root Compression DESCRIPTION OF PROCEDURE Fluoroscopically guided, contrast-controlled L5/S1 translaminar epidural steroid injection. Following review of allergy and review of potential side effects and complications, including, but not necessarily limited to, infection, allergic reaction, local tissue breakdown, temporary as well as permanent nerve injury, paralysis, stroke and possible , the patient indicated that the patient understood and agreed to proceed. An informed consent document was signed by the patient, witnessed by a nurse, and placed in the patient's chart. Additionally, other treatment options including modalities, medications, and physical therapy were reviewed with the patient. After review of previous anaesthesic history and IV conscious sedation the patient was deemed safe to proceed with today?s procedure with IV conscious sedation as ASA class II designation. Safety time-out was performed to confirm patient ID, procedure to be performed and site of procedure. IV sedation was accomplished with a combination of 4mg of Versed administered by the RN after DO order, titrated to patient comfort during the course of the procedure while the patient remained responsive to all verbal commands. In the prone position, following sterile prep and drape of the lumbar region, the L5/S1 translaminar space was identified fluoroscopically. The skin was anesthetized via a 25-gauge, 1.5-inch needle with 1% lidocaine solution. At this point, a 22-gauge short bevel spinal needle was atraumatically introduced and advanced under fluoroscopic guidance into the region of the L5/S1 translaminar space. Depth was confirmed on lateral view. Radiological data, including multiple fluoroscopic views of the lumbar spine, reveal a spinal needle at the L5/S1 translaminar space. Lateral views then show placement of the needle in the epidural space. Subsequent views show contrast material flowing superiorly and inferiorly in the epidural space. No vascular or intrathecal uptake is observed. At this point, using loss of resistance technique with saline and air, the epidural space was entered. This was confirmed following negative aspiration with injection of approximately 1.5cc of Isovue 200, showing excellent epidural flow without vascular or intrathecal uptake. At this point, 1 cc of 1% lidoca ine solution combined with 3cc or 20mg of dexamethasone and 6mg of betamethasone was injected without incident. The patent tolerated the procedure without signs of symptoms of complications prior to transfer to the recovery area for further monitoring. The patient was then transferred to the recovery area where they were observed for an appropriate period of time after the injection. The patient reported a VAS score of 6 prior to the procedure and a post-procedure VAS of 0. POST OP INSTRUCTIONS The patient was provided a Pain Log to continue to record their response to the target-specific procedure prior to follow-up visit with their referring physician. Additionally, specific post-injection care instructions and a contact number to our office were provided if concerns arise regarding possible complications associated with the procedure are suspected.
== END 2022-01-14 11:08 | disposition home or self-care (01) ==
LOC: RAD 09:10
PROVIDERS: PCP Family Medicine; Referring Provider Physical Medicine & Rehabilitation; Visit Provider Physical Medicine & Rehabilitation
DX: M51.17 Intervertebral disc disorders with radiculopathy, lumbosacral region (principal); M48.07 Spinal stenosis, lumbosacral region
CPT/HCPCS: 62323; 99152; J0702; J1100; J2250; J3490

== ENCOUNTER → 2022-01-27 09:52 | Outpatient (CLI) | payer MEDICARE, SELFPAY ==
[2022-01-09 15:05] VITALS: BMI 24.6
[2022-01-27 11:18] LABS: Hematocrit 35.2 % (36-46); Hemoglobin 11.1 g/dL (12.0-16.0)
[2022-01-27 12:16] LABS: Ferritin 11 ng/mL (11-264)
== END ==
PROVIDERS: PCP Family Medicine; Referring Provider Family Medicine; Visit Provider Family Medicine
DX: D64.9 Anemia, unspecified (principal)
CPT/HCPCS: 36415; 82728; 85014; 85018

== ENCOUNTER 2022-02-18 13:25 | Outpatient (CLI) | payer MEDICARE, SELFPAY ==
[2022-01-09 15:05] VITALS: BMI 24.6
[2022-02-18] VITALS (9 sets, daily range): BP systolic 142–181; BP diastolic 77–90; PULSE 91–100; RESP 14–20; TEMP 36.4; O2SAT 95–97
--- NOTE | 2022-02-18 13:31 | DI.RAD.S_ITS ---
PROCEDURE: PAIN L/S FACET INJ/BLK 1ST SCOT COMPARISON: None. INDICATIONS: SPONDYLOSIS FINDINGS: Access needles in the bilateral L4-L5 and L5-S1 facets for facet joint injection. Injection of small amount of iodinated contrast material demonstrates axis needles are extra thecal. IMPRESSION: Access needles in the bilateral L4-L5 and L5-S1 facets for facet joint injection. Dictated by: Debby Carlton MD, PhD on 02/18/2022 at 15:29 Approved by: Debby Carlton MD, PhD on 02/18/2022 at 15:30
[2022-02-18] MEDS: MIDAZOLAM 2 MG/2 ML VIAL 4 MG IV (14:29)
[2022-02-18] MEDS: BUPIVACAINE 0.5% (PF) VIAL 5 ML INJ (14:32)
[2022-02-18] MEDS: LIDOCAINE 1% (PF) 5 ML INJ (14:32)
[2022-02-18] MEDS: IOPAMIDOL 15 ML VIAL 3 ML INJ (14:32)
[2022-02-18] MEDS: BETAMETHASONE 30 MG/5 ML MDV 6 MG INJ (14:33)
--- NOTE | 2022-02-18 14:44 | P.PCN_ITS ---
Date/Time/Diagnoses Date of procedure: 02/18/22 Time of procedure: 14:44 Pre-procedure diagnosis: 1. FACET ARTHROPATHY 2. AXIAL LBP 3. MULTILEVEL DDD Post-procedure diagnosis: same Procedure Notes Procedure: 1. FLUOROSCOPICALLY GUIDED CONTRAST CONTROLLED FACET JOINT INJECTIONS BILATERAL L4/5, L5/S1 Indications: Rosie is referred by Dr. Paredes for treatment of Axial LBP Physician: Mejia Arevalo Total Fluoroscopy time (seconds): 8 Total sedation minutes: 12 Complications: none Procedure in detail & Post-procedure care: FINDINGS Multilevel Facet Arthropathy with Clinically significant axial LBP DESCRIPTION OF PROCEDURE Fluoroscopically guided, contrast-controlled bilateral L4/5, L5/S1 facet joint injections. Following review of allergy and review of potential side effects and complications, including, but not necessarily limited to, infection, allergic reaction, local tissue breakdown, stroke, temporary or permanent nerve injury, paralysis, and possible , the patient indicated that the patient understood and agreed to proceed. An informed consent document was signed by the patient, witnessed by a nurse, and placed in the patient's chart. Additionally, other treatment options including medications, modalities, and physical therapy were reviewed with the patient. After review of previous anaesthesic history and IV conscious sedation the patient was deemed safe to proceed with today?s procedure with IV conscious sedation as ASA class II designation. Safety time-out was performed to confirm patient ID, procedure to be performed and site of procedure. IV sedation was accomplished with a combination of 4mg of Versed was administered by the RN after DO order, titrated to patient comfort during the course of the procedure while the patient remained responsive to all verbal commands In the prone position, following sterile prep and drape of the lumbar region, the posterior aspect of the L4/5, L5/S1 facet joints were identified fluoroscopically. The skin was anesthetized via a 25-gauge 1.5inch needle with 1% lidocaine solution into the corresponding facet joints. At this point, a 22- gauge 3.5-inch spinal needle was atraumatically introduced and advanced under fluoroscopic guidance into the corresponding facet joints. Following negative aspiration, injections of approximately 0.2cc of Isovue 200 confirmed interarticular placement without vascular uptake. The identical procedure was then performed at the L4/5, L5/S1 facet joints on the left. Radiological data, including multiple fluoroscopic views of the lumbosacral spine, reveal a spinal needle at the L4/5, L5/S1 facet joints bilaterally. Subsequent views show flow of contrast material both superiorly and inferiorly within the joint space without vascular or intrathecal uptake. At this point, a total of 0.5cc including a mixture of 0.25cc Marcaine and 0.25cc betamethasone was injected without complication into each of the corresponding facet joints. The patient tolerated the procedure well without signs or symptoms of complications prior to transfer to the recovery area continued monitoring without incident. The patient was then transferred to the recovery area where they were observed for an appropriate period of time after the injection. The patient reported a VAS score of 7 prior to the procedure and a post- procedure VAS of 0. POST OP INSTRUCTIONS The patient was provided a Pain Log to continue to record their response to the target-specific procedure prior to follow-up visit with their referring physician. Additionally, specific post-injection care instructions and a contact number to our office were provided if concerns arise regarding possible complications associated with the procedure are suspected.
== END 2022-02-18 15:06 | disposition home or self-care (01) ==
LOC: RAD 13:27
PROVIDERS: PCP Family Medicine; Referring Provider Physical Medicine & Rehabilitation; Visit Provider Physical Medicine & Rehabilitation
DX: M47.816 Spondylosis without myelopathy or radiculopathy, lumbar region (principal); M47.817 Spondylosis without myelopathy or radiculopathy, lumbosacral region; M51.36 Other intervertebral disc degeneration, lumbar region; M51.37 Other intervertebral disc degeneration, lumbosacral region
CPT/HCPCS: 64493; 64494; 99152; J0702; J2250

== ENCOUNTER → 2022-03-03 10:52 | Outpatient (CLI) | payer MEDICARE, SELFPAY ==
[2022-01-09 15:05] VITALS: BMI 24.6
[2022-03-03 11:41] LABS: COVID19 -Nasal RAPID Negative (Negative)
== END ==
PROVIDERS: PCP Family Medicine; Visit Provider Surgery
DX: Z01.812 Encounter for preprocedural laboratory examination (principal); Z20.822 Contact with and (suspected) exposure to COVID-19; M47.816 Spondylosis without myelopathy or radiculopathy, lumbar region; M43.16 Spondylolisthesis, lumbar region; M48.062 Spinal stenosis, lumbar region with neurogenic claudication; Z96.643 Presence of artificial hip joint, bilateral
CPT/HCPCS: 87635; 99213; C9803

== ENCOUNTER 2022-03-04 07:32 | Day surgery (SDC) | payer MEDICARE, SELFPAY ==
[2022-01-09 15:05] VITALS: BMI 24.6
--- NOTE | 2022-03-04 | PATH_ITS ---
[facility] Accession Number: [id number] No. of containers..01 Tissue . 01 Material submitted: . colon - TRANSVERSE . 01 Diagnosis: Transverse Colon, Biopsy: Inflammatory polyp. Negative for dysplasia or malignancy. [facility] 03/06/2022 1023 Local . 01 Electronically signed: . Shannon Rajput MD, Pathologist NPI- [id number] . 01 Gross description: . TRANSVERSE: Received in formalin is 1 fragment(s) of lynne, soft tissue measuring 0.3 x 0.3 x 0.1 cm submitted entirely in 1 cassette(s) /CPE 03/05/2022 0948 Local . 01 Pathologist provided ICD-10: K63.5 . 01 CPT . 671961 Specimen Comment: A courtesy copy of this report has been sent to [phone] Performed at: 01 [facility] [address] [place] [address], [place], [place] [id number] MD Caleb Flores MD Phone: [phone]
[2022-03-04 07:55] VITALS: BMI 23.6
[2022-03-04] MEDS: LACTATED RINGERS 1,000 ML 42 ML IV (08:05)
--- NOTE | 2022-03-04 08:25 | PM.HP.1 ---
History of Present Illness History of Present Illness Date Patient Seen: 03/04/22 Time Patient Seen: 08:25 Chief complaint: SDC Narrative: The patient presents for colorectal screening. Previous colonoscopy 10 years ago normal. No personal or family history of colon cancer. On further history denies any recent gastrointestinal symptoms. She has anemia but it is responding to iron supplementation appropriately. No nausea, vomiting, abdominal pain, loss of appetite, unexplained weight loss, change in bowel habits, diarrhea, constipation, melena, hematochezia, or bright red blood per rectum. Patient History Medical History Anemia Anxiety Asthma Chronic pain Depression Diabetes Eczema Facet arthropathy, lumbar GERD (gastroesophageal reflux disease) Hand arthritis HLD (hyperlipidemia) HTN (hypertension) Lumbar stenosis with neurogenic claudication Mild persistent asthma Spondylolisthesis at L4-L5 level Vaccine counseling Surgical History History of cystoscopy History of tonsillectomy History of total left hip arthroplasty (~2014) History of total replacement of right hip Family & Social History Family History Mother Cancer Heart disease S/P breast lumpectomy Pacemaker Social History: household members spouse Tobacco & Substance use: Smoking Status Former smoker alcohol intake current alcohol intake frequency 0-2 drinks per day Substance Use Type does not use Meds Home Medications and Allergies Home Medications Medication Instructions Recorded Confirmed Type calcium carbonate 600 mg-vitamin 1 cap PO 10/11/19 03/03/22 History D3 10 mcg (400 unit) capsule blood sugar diagnostic (OneTouch See Rx Instructions .Route 09/06/20 03/03/22 Rx Ultra Blue Test Strip) .COMPLEX #200 strips multivitamin with minerals 1 tab PO DAILY 06/10/21 03/03/22 History (Hair,Skin and Nails tablet) albuterol sulfate 90 mcg/actuation 2 puff inhalation 6XD PRN 07/18/21 03/04/22 Rx aerosol inhaler (Ventolin HFA) Shortness Of Breath #8.5 grams simvastatin 40 mg tablet 40 mg PO QAM #90 tabs 09/06/21 03/03/22 Rx budesonide-formoterol HFA 160 1 inh inhalation DAILY PRN Runny 10/21/21 03/04/22 History mcg-4.5 mcg/actuation aerosol Nose inhaler (Symbicort) montelukast 10 mg tablet 10 mg PO DAILY #90 tabs 11/25/21 03/03/22 Rx alprazolam 1 mg tablet 1 mg PO BEDTIME #90 tabs 12/16/21 03/03/22 Rx meloxicam 15 mg tablet 15 mg PO DAILY #30 tabs 12/16/21 03/03/22 Rx ferrous gluconate 324 mg (38 mg 324 mg PO DAILY 12/17/21 03/03/22 History iron) tablet loratadine 10 mg tablet 10 mg PO DAILY 12/17/21 03/03/22 History omeprazole 20 mg capsule,delayed 20 mg PO ONCE #180 caps 12/17/21 03/03/22 Rx release metformin 500 mg tablet See Rx Instructions .Route 01/02/22 03/03/22 Rx .COMPLEX #360 tabs losartan 50 mg-hydrochlorothiazide 1 tab PO DAILY #90 tabs 01/27/22 03/03/22 Rx 12.5 mg tablet Allergies Allergy/AdvReac Type Severity Reaction Status Date / Time No Known Drug Allergies Allergy Verified 03/04/22 07:48 Exam Narrative Exam Narrative: General adult woman alert oriented no acute distress Assessment & Plan Assessment & Plan narrative: The patient requires colorectal screening and colonoscopy is recommended. Technical details were discussed. Risks, benefits, alternatives explained. Risks including but not limited to myocardial infarction, aspiration, bleeding, pain, missed lesion, incomplete examination, need for further radiographic studies, colonic perforation, and need for major abdominal surgery were discussed. All questions were answered to their satisfaction, and they are in agreement with this plan. Time Spent With Patient Critical Care time: I spent a total of [] minutes of critical care time on this patient's care today; this time is exclusive of procedural time.
--- NOTE | 2022-03-04 08:28 | PM.OP.COLON ---
Operative Date/Time/Diagnoses Date of procedure: 03/04/22 Time of procedure: 08:28 Pre-op diagnosis: Colorectal screening Post-op diagnosis: same Procedure & Clinicians Study performed: Colonoscopy Same procedure as scheduled: Yes Indications: Colorectal screening Surgeon: Sunday Simon Procedure Notes Procedure in detail: The history and physical was performed/updated and the patient is ASA class is 2. The procedure was discussed in detail with the patient. Potential risks complications including infection, bleeding, missed diagnosis, perforation, need for surgery, and were explained. Their questions were answered and informed consent was obtained. Patient was brought to the procedure room and placed standard monitoring equipment. The patient's vital signs were monitored continuously throughout the entire procedure. Prior to starting time-out was performed. The patient was placed in the left lateral recumbent position. Procedural sedation was administered by anesthesia. Examination began with a thorough inspection of the perianal area there was no evidence of fissures, fistulae, external hemorrhoids or cutaneous malignancy. The colonoscopy scope was then placed into the anal canal and was advanced to the cecum, which was identified by the ileocecal valve, the appendiceal orifice and the confluence of the taenia. The scope was then slowly withdrawn examining colon thoroughly in all directions, irrigating it of any residual stool. FINDINGS 1. Transverse colon-1 cm polyp removed with cold snare pedunculated in its entirety The patient tolerated the procedure well. They will be discharged once criteria are met. The prep was of good/excellent quality. The withdrawl time was 11 minutes. Specimen(s): other (Transverse colon polyp) Complications: none Impression: Colonic polyp Post-procedure Recommendations: High fiber diet Plan for aftercare: Follow-up dependent on pathology findings Disposition: same day surgery
[2022-03-04 09:04] VITALS: BP 172/94; PULSE 94; RESP 16; TEMP 36.8; O2SAT 98
[2022-03-04 09:09] VITALS: BP 174/94; PULSE 95; RESP 16; O2SAT 98
[2022-03-04 09:29] VITALS: BP 162/86; PULSE 95; RESP 16; TEMP 36.1; O2SAT 98
== END 2022-03-04 09:41 | disposition home or self-care (01) ==
PROVIDERS: PCP Family Medicine; Referring Provider Surgery; Visit Provider Surgery
PROC: 0DJD8ZZ Inspection of Lower Intestinal Tract, Via Natural or Artificial Opening Endoscopic (ICD-10-PCS; CPT 45378; principal; 2022-03-04 08:15)
DX: Z12.11 Encounter for screening for malignant neoplasm of colon (principal); K63.5 Polyp of colon
CPT/HCPCS: 45385; 82962; J2704

== ENCOUNTER 2022-03-25 14:26 | Outpatient (CLI) | payer MEDICARE, SELFPAY ==
[2022-01-09 15:05] VITALS: BMI 24.6
[2022-03-25] VITALS (9 sets, daily range): BP systolic 146–181; BP diastolic 72–99; PULSE 62–93; RESP 15–23; TEMP 36.6; O2SAT 96–100
--- NOTE | 2022-03-25 14:29 | DI.RAD.S_ITS ---
PROCEDURE: PAIN L/S FACET INJ/BLK 1ST SCOT COMPARISON: [facility], , PAIN L/S FACET INJ/BLK 1ST SCOT, 02/18/2022, 15:29. INDICATIONS: SPINAL STENOSIS FINDINGS: Fluoroscopic spot filming was performed to verify placement of spinal needles on both sides at the L4, L5, and S1 levels, as labeled on the films. Appropriate location of the needle tips was confirmed by injection of iodinated contrast. IMPRESSION: Intraprocedural examination demonstrating appropriate positions of the needles. Dictated by: Mathew Piedra M.D. on 03/25/2022 at 16:59 Approved by: Mathew Piedra M.D. on 03/25/2022 at 16:59
[2022-03-25] MEDS: MIDAZOLAM 2 MG/2 ML VIAL 4 MG IV (15:16)
[2022-03-25] MEDS: IOPAMIDOL 15 ML VIAL 3 ML INJ (15:19)
[2022-03-25] MEDS: BUPIVACAINE 0.5% (PF) 30 ML VIAL 5 ML INJ (15:19)
[2022-03-25] MEDS: LIDOCAINE 1% (PF) 5 ML INJ (15:20)
--- NOTE | 2022-03-25 15:34 | PM.PROC.IR.1 ---
Date/Time/Diagnoses Date of procedure: 03/25/22 Time of procedure: 15:34 Pre-procedure diagnosis: 1. FACET ARTHROPATHY Post-procedure diagnosis: same Procedure Notes Procedure: 1. BILATERAL- L4, L5 and S1 DIAGNOSTIC MB BLOCKS with LA Anesthetic Indications: Rosie is referred by Dr. Paredes for treatment of Bilateral Axial LBP. Physician: Mejia Arevalo Total Fluoroscopy time (seconds): 13 Total sedation minutes: 17 Complications: none Procedure in detail & Post-procedure care: DESCRIPTION OF PROCEDURE Fluoroscopically guided, contrast-controlled bilateral L4, L5 and S1 medial branch blocks with 0.5cc of 0.5% Marcaine. Following review of allergy and review of potential side effects and complications, including, but not necessarily limited to, infection, allergic reaction, local tissue breakdown, nerve injury, paralysis, stroke and possible , the patient indicated that the patient understood and agreed to proceed. An informed consent document was signed by the patient, witnessed by a nurse, and placed in the patient's chart. After review of previous anaesthesic history and IV conscious sedation the patient was deemed safe to proceed with today's procedure with IV conscious sedation as ASA class II designation. Safety time-out was performed to confirm patient ID, procedure to be performed and site of procedure. IV sedation was accomplished with a combination of 4mg of Versed was administered by the RN after DO order, titrated to patient comfort during the course of the procedure while the patient remained responsive to all verbal commands In the prone position, following sterile prep and drape of the lumbar region, the right L4, L5 and S1 anatomical location of the medial branch of the dorsal ramus was identified fluoroscopically. Subsequently an anesthetic skin wheal using 1% lidocaine solution was initiated at each of the anatomical spots. Subsequently then a 22-gauge 3.5-inch spinal needle was atraumatically introduced and advanced under fluoroscopic guidance at each of the corresponding sites at the right L4, L5 and S1 MB. After negative aspiration, 0.2cc of Isovue 200 was injected, confirming placement without vascular or intrathecal uptake. Subsequently then 0.5cc of 0.5% Marcaine solution was injected at each of the corresponding sites at the right L4, L5 and S1 medial branch locations. The identical procedure was replicated on the left. The patient tolerated the procedure well without signs or symptoms of complications prior to transfer to the recovery area continued monitoring without incident. Post-procedure, the patient was monitored initiating provocative activities to measure the amount of relief from block of the facetogenic pain. The patient reported a VAS of 7 prior to the procedure and a post-procedure VAS of 1. It has been a pleasure to assist in the diagnostic and therapeutic care of your patient. POST OP INSTRUCTIONS The patient was provided with a Pain Log to complete over the next several hours and subsequent days prior to the patient's follow up with the ordering physician. If the patient has security officer supervisor relief to the solution applied, then they may be a candidate for medial branch rhizotomy. The patient is aware, was provided, once again, with a Pain Log and will follow up with the referring physician for review and clinical correlation
== END 2022-03-25 15:53 | disposition home or self-care (01) ==
PROVIDERS: PCP Family Medicine; Referring Provider Physical Medicine & Rehabilitation; Visit Provider Physical Medicine & Rehabilitation
DX: M47.816 Spondylosis without myelopathy or radiculopathy, lumbar region (principal); M47.817 Spondylosis without myelopathy or radiculopathy, lumbosacral region
CPT/HCPCS: 64493; 64494; 99152; J2250

== ENCOUNTER 2022-04-08 15:15 | Outpatient (CLI) | payer MEDICARE, SELFPAY ==
[2022-01-09 15:05] VITALS: BMI 24.6
[2022-04-08] VITALS (9 sets, daily range): BP systolic 176–194; BP diastolic 79–105; PULSE 63–90; RESP 17–20; TEMP 36.5; O2SAT 98–100
--- NOTE | 2022-04-08 15:17 | DI.RAD.S_ITS ---
PROCEDURE: PAIN L/S FACET INJ/BLK 1ST SCOT COMPARISON: [facility], XA, PAIN L/S FACET INJ/BLK 1ST SCOT, 03/25/2022, 16:17. INDICATIONS: SPONDYLOSIS FINDINGS: Access needles at the bilateral L4, L5 and S1 medial pedicles for bilateral L4, L5 and S1 medial branch block. Injection of small amount of contrast material demonstrates axis needles are extra thecal. IMPRESSION: Access needles at the bilateral L4, L5 and S1 pedicles for bilateral L4, L5 and S1 medial branch blocks. Dictated by: Debby Carlton MD, PhD on 04/08/2022 at 16:42 Approved by: Debby Carlton MD, PhD on 04/08/2022 at 16:43
[2022-04-08] MEDS: MIDAZOLAM 2 MG/2 ML VIAL IV (16:00)
[2022-04-08] MEDS: LIDOCAINE 1% (PF) 5 ML INJ (16:07)
[2022-04-08] MEDS: LIDOCAINE 2% INJ SDV 5ML 1 ML INJ (16:07)
[2022-04-08] MEDS: IOPAMIDOL 15 ML VIAL 3 ML INJ (16:07)
--- NOTE | 2022-04-08 16:27 | PM.PROC.IR.1 ---
Date/Time/Diagnoses Date of procedure: 04/08/22 Time of procedure: 16:27 Pre-procedure diagnosis: 1. FACET ARTHROPATHY Post-procedure diagnosis: same Procedure Notes Procedure: 1. BILATERAL- L4, L5 and S1 DIAGNOSTIC MB BLOCKS with SA Anesthetic Indications: Christ is referred by Dr. Paredes for treatment of Bilateral Axial LBP. Physician: Mejia Arevalo Total Fluoroscopy time (seconds): 13 Total sedation minutes: 20 Complications: none Procedure in detail & Post-procedure care: DESCRIPTION OF PROCEDURE Fluoroscopically guided, contrast-controlled bilateral L4, L5 and S1 medial branch blocks with 0.5cc of 2% Lidocaine. Following review of allergy and review of potential side effects and complications, including, but not necessarily limited to, infection, allergic reaction, local tissue breakdown, nerve injury, paralysis, stroke and possible , the patient indicated that the patient understood and agreed to proceed. An informed consent document was signed by the patient, witnessed by a nurse, and placed in the patient's chart. After review of previous anaesthesic history and IV conscious sedation the patient was deemed safe to proceed with today's procedure with IV conscious sedation as ASA class II designation. Safety time-out was performed to confirm patient ID, procedure to be performed and site of procedure. IV sedation was accomplished with a combination of 2mg of Versed was administered by the RN after DO order, titrated to patient comfort during the course of the procedure while the patient remained responsive to all verbal commands In the prone position, following sterile prep and drape of the lumbar region, the right L4, L5 and S1 anatomical location of the medial branch of the dorsal ramus was identified fluoroscopically. Subsequently an anesthetic skin wheal using 1% lidocaine solution was initiated at each of the anatomical spots. Subsequently then a 22-gauge 3.5-inch spinal needle was atraumatically introduced and advanced under fluoroscopic guidance at each of the corresponding sites at the right L4, L5 and S1 MB. After negative aspiration, 0.2cc of Isovue 200 was injected, confirming placement without vascular or intrathecal uptake. Subsequently then 0.5cc of 2% Lidocaine solution was injected at each of the corresponding sites at the right L4, L5 and S1 medial branch locations. The identical procedure was replicated on the left. The patient tolerated the procedure well without signs or symptoms of complications prior to transfer to the recovery area continued monitoring without incident. Post-procedure, the patient was monitored initiating provocative activities to measure the amount of relief from block of the facetogenic pain. The patient reported a VAS of 7 prior to the procedure and a post-procedure VAS of 1. It has been a pleasure to assist in the diagnostic and therapeutic care of your patient. POST OP INSTRUCTIONS The patient was provided with a Pain Log to complete over the next several hours and subsequent days prior to the patient's follow up with the ordering physician. 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 The patient is aware, was provided, once again, with a Pain Log and will follow up with the referring physician for review and clinical correlation
== END 2022-04-08 16:39 | disposition home or self-care (01) ==
PROVIDERS: PCP Family Medicine; Referring Provider Physical Medicine & Rehabilitation; Visit Provider Physical Medicine & Rehabilitation
DX: M47.816 Spondylosis without myelopathy or radiculopathy, lumbar region (principal); M47.817 Spondylosis without myelopathy or radiculopathy, lumbosacral region
CPT/HCPCS: 64493; 64494; 99152; J2250

== ENCOUNTER 2022-05-27 07:27 | Outpatient (CLI) | payer MEDICARE, SELFPAY ==
[2022-01-09 15:05] VITALS: BMI 24.6
[2022-05-27] VITALS (12 sets, daily range): BP systolic 107–159; BP diastolic 56–84; PULSE 81–89; RESP 13–20; TEMP 36.4; O2SAT 95–100
--- NOTE | 2022-05-27 07:30 | DI.RAD.S_ITS ---
PROCEDURE: PAIN L/S MED/LAT N RFA BILAT INDICATIONS: SPONDYLOSIS COMPARISON: [facility], , PAIN L/S FACET INJ/BLK 1ST SCOT, 04/08/2022, 17:07. FINDINGS: Fluoroscopic spot filming was performed to verify placement of spinal needles at the mid and lower lumbar levels as labeled on the films. Appropriate location(s) of the needle tip(s) was confirmed by injection of iodinated contrast. IMPRESSION: Needle placement as above Dictated by: Batsheva Argueta M.D. on 05/27/2022 at 11:49 Approved by: Batsheva Argueta M.D. on 05/27/2022 at 11:50
[2022-05-27] MEDS: MIDAZOLAM 2 MG/2 ML VIAL IV (08:23)
[2022-05-27] MEDS: LIDOCAINE 1% 20 ML 5 ML INJ (08:25)
[2022-05-27] MEDS: BUPIVACAINE 0.5% (PF) 10 ML VIAL 5 ML SUBCUT (08:26)
--- NOTE | 2022-05-27 09:00 | P.PCN_ITS ---
Date/Time/Diagnoses Date of procedure: 05/27/22 Time of procedure: 09:00 Pre-procedure diagnosis: 1. RECALCITRANT FACET ARTHROPATHY Post-procedure diagnosis: same Procedure Notes Procedure: 1. BILATERAL L4 AND L5 MEDIAL BRANCH RADIOFREQUENCY NEUROTOMY AND S1 DORSAL RAMUS BRANCH RADIOFREQUENCY NEUROTOMY Indications: Rosie is referred by Dr. Paredes for treatment of facet arthropathy. Physician: Mejia Arevalo Total Fluoroscopy time (seconds): 19 Total sedation minutes: 40 Complications: none Procedure in detail & Post-procedure care: DESCRIPTION OF PROCEDURE Bilateral L4 and L5 medial branch radiofrequency neurotomy and bilateral S1 dorsal ramus radiofrequency neurotomy under fluoroscopy with conscious sedation. The patient is well known to this clinic having undergone previous facet injections with good but temporary relief. The patient has experienced appropriate, concordant relief with previous facet and median branch blocks but the patient's pain has been recalcitrant to further conservative measures. Therefore, based upon the patient's relief and persistent symptoms, the patient is considered an appropriate candidate for facet rhizotomy. All of the patient's questions regarding the risks versus benefits of the procedure, including, but not limited to, bleeding, infection, temporary as well as lasting nerve injury, paralysis, stroke, and , as well treatment alternatives were answered to satisfaction. After obtaining informed consent, denial of pertinent drug allergies, as well as being made aware of the potential risks of bleeding, infection, spinal cord trauma, paralysis, temporary and permanent nerve damage, seizure, stroke, and possible , the patient was brought to the fluoroscopy suite and positioned prone on the fluoroscopy table. The lumbar region was prepped with Betadine and covered with a fenestrated drape in the usual sterile fashion. Appropriate monitors applied including pulse oximeter, pulse, and blood pressure for regular monitoring throughout the procedure. After review of previous anaesthesic history and IV conscious sedation the patient was deemed safe to proceed with today's procedure with IV conscious sedation as ASA class II designation. Safety time-out was performed to confirm patient ID, procedure to be performed and site of procedure. IV sedation was accomplished with a combination of 2mg of Versed administered by the RN after DO order, titrated to patient comfort during the course of the procedure while the patient remained responsive to all verbal commands. After local infiltration using 1% lidocaine, under fluoroscopic guidance, a 10- cm RF insulated needle with a 10-mm active tip was positioned parallel to the junction of the right sacral ala and the superior articulating process where the S1 dorsal ramus resides. Needle placement was confirmed with motor stimulation of .5v on the right which produced local stimulation without radicular component. The stimulation was then increased to 2v with, once again, only local multifidus stimulation without radicular component. The needle was then removed and the identical procedure was performed along the length of the right L5 medial branch with motor stimulation at .7v on the right. The identical procedure was once again performed along the length of the right L4 medial branch with motor stimulation of .5v on the right. The medial branches were then anesthetised with 0.5% Marcaine. This was then followed by two discreet lesions performed at 80 degrees Celsius for 90 seconds each. The identical procedure was repeated on the left. The patient tolerated the procedure well without signs or symptoms of complications prior to transfer to the recovery area continued monitoring without incident. The patient was then transferred to the recovery area where they were observed for an appropriate period of time after the injection. The patient reported a VAS score of 9 prior to the procedure and a post-procedure VAS of 0. POST OP INSTRUCTIONS The patient was provided a Pain Log to continue to record the patient's response to the target-specific procedure prior to the patient's follow-up visit with the referring physician. Additionally, specific post-injection care instructions and a contact number to our office were provided if concerns arise regarding possible complications associated with the procedure are suspected.
== END 2022-05-27 09:07 | disposition home or self-care (01) ==
LOC: RAD 07:28
PROVIDERS: PCP Family Medicine; Referring Provider Physical Medicine & Rehabilitation; Visit Provider Physical Medicine & Rehabilitation
DX: M47.816 Spondylosis without myelopathy or radiculopathy, lumbar region (principal); M47.817 Spondylosis without myelopathy or radiculopathy, lumbosacral region
CPT/HCPCS: 64635; 64636; 99152; 99153; J2250

== ENCOUNTER → 2022-06-16 07:08 | Outpatient (CLI) | payer MEDICARE, SELFPAY ==
[2022-01-09 15:05] VITALS: BMI 24.6
[2022-06-16 08:34] LABS: Alanine Aminotransferase 23 IU/L (<35); Albumin 4.3 g/dL (3.5-5.0); Albumin Globulin Ratio 1.7 (1.0-2.8); Alkaline Phosphatase 53 U/L (38-126); Aspartate Aminotransferase 27 IU/L (14-36); BUN Creatinine Ratio 31.3 (6-22); Bilirubin Total 0.4 mg/dL (0.2-1.3); Blood Urea Nitrogen 20 mg/dL (7-17); Calcium 10.3 mg/dL (8.4-10.2); Carbon Dioxide 30 mmol/L (22-32); Chloride 93 mmol/L (98-107); Cholesterol 164 mg/dL (140-199); Estimated Glomerular Filt Rate > 60 mL/min (>60); Globulin 2.6 g/dL (1.7-4.1); Glucose 76 mg/dL (80-110); HDL Cholesterol 104 mg/dL (40-60); HEMOLYSIS < 15 (0-50); LDL Cholesterol Calculated 50 mg/dL (<100); Potassium 4.5 mmol/L (3.4-5.1); Sodium 132 mmol/L (137-145); Total Protein 6.9 g/dL (6.3-8.2); Triglycerides 52 mg/dL (35-150)
[2022-06-16 09:50] LABS: Creatinine Urine Random 87.6 mg/dL
[2022-06-16 09:52] LABS: Microalbumi Creatinin Ratio Ur 25.1 ug/mg CR (<30); Microalbumin Urine Random 2.2 mg/dL (0-1.6)
[2022-06-17 23:43] LABS: Labcorp Hemoglobin (Hb) A1c 6.1 % (4.8-5.6)
== END ==
PROVIDERS: PCP Family Medicine; Referring Provider Family Medicine; Visit Provider Family Medicine
DX: E11.9 Type 2 diabetes mellitus without complications (principal)
CPT/HCPCS: 36415; 80053; 80061; 82043; 82570; 83036

== ENCOUNTER → 2022-10-17 10:03 | Outpatient (CLI) | payer MEDICARE, SELFPAY ==
[2022-08-19 09:49] VITALS: BMI 24.6
--- NOTE | 2022-10-17 | DI.MG.S_ITS ---
BILATERAL DIGITAL SCREENING MAMMOGRAM 3D/2D WITH CAD: 10/17/2022 CLINICAL: Routine screening. Family history of breast cancer. Comparison is made to exams dated: 10/14/2021 mammogram, 10/11/2020 mammogram, and 10/06/2019 mammogram - [facility]. There are scattered areas of fibroglandular density in both breasts (category b / 25%-50% glandular tissue). Current study was also evaluated with a Computer Aided Detection (CAD) system. There are benign vascular calcifications in both breasts. No significant masses, calcifications, or other findings are seen in either breast. There has been no significant interval change. IMPRESSION: BENIGN There is no mammographic evidence of malignancy. A 1 year screening mammogram is recommended. Based on the Tyrer Cuzick model (a risk assessment model) the patient's lifetime risk is 9.7% and her 10 year risk is 7.3%. According to the ACR, ACS, and NCCN guidelines, an annual breast MRI exam along with mammogram is recommended if the patient's lifetime risk is 20% or greater. This exam was interpreted at Station ID: [id number]. NOTE: For mammograms, a report in lay terms will be sent to the patient. Approximately 15% of breast malignancies will not be visualized mammographically. In the management of a palpable breast mass, a negative mammogram must not discourage biopsy of a clinically suspicious lesion. Electronically Signed By: Ester medina/perico:10/17/2022 14:14:53 letter sent: Normal Exam ACR BI-RADS Category 2: Benign Finding(s) [id number]
== END ==
PROVIDERS: PCP Family Medicine; Referring Provider Family Medicine; Visit Provider Family Medicine
DX: Z12.31 Encounter for screening mammogram for malignant neoplasm of breast (principal); Z80.3 Family history of malignant neoplasm of breast
CPT/HCPCS: 77063; 77067

== ENCOUNTER → 2022-12-15 07:57 | Outpatient (CLI) | payer MEDICARE, SELFPAY ==
[2022-08-19 09:49] VITALS: BMI 24.6
[2022-12-15 09:16] LABS: Hemoglobin A1C% w Est Avg Glu 5.5 % (4.0-6.0)
== END ==
PROVIDERS: PCP Family Medicine; Referring Provider Family Medicine; Visit Provider Family Medicine
DX: E11.9 Type 2 diabetes mellitus without complications (principal)
CPT/HCPCS: 36415; 83036

== ENCOUNTER → 2022-12-26 10:11 | Outpatient (CLI) | payer MEDICARE, SELFPAY ==
[2022-08-19 09:49] VITALS: BMI 24.6
--- NOTE | 2022-12-26 10:12 | DI.RAD.S_ITS ---
Bone Density Report Name: JANETTE CHAPMAN Age: 72 Sex: Female Ethnicity: White Date of : 1950 Indication: postmenopausal; screening for osteoporosis; Referring Provider: FELICITAS BARON Study: Bone densitometry was performed. Exam Date: December 26, 2022 Accession number: [id number] Bone Density: Region BMD T-score Z-score Classification AP Spine(L1-L4) 1.249 1.8 4.1 Normal Total Forearm (Left) 0.601 0.4 2.7 Normal 1/3 Forearm (Left) 0.698 0.1 2.4 Normal UD Forearm (Left) 0.456 0.2 1.9 Normal World Health Organization criteria for BMD impression classify patients as: Normal (T-score at or above -1.0), Osteopenia (T-score between -1.0 and -2.5), or Osteoporosis (T-score at or below -2.5). Previous Exams: -- Region Exam Age BMD T-score BMD Change BMD Change Date g/cm2 vs Baseline vs Previous -- AP Spine (L1-L4) 12/26/2022 72 1.249 1.8 -0.028 (-2.2%)# -0.028 (-2.2%)# 07/05/2014 63 1.277 2.1 -- *Denotes significance at 95% confidence level, LSC for AP Spine = 0.022 g/cm2 # Denotes dissimilar scan types or analysis methods Impression: The patient has normal bone mass. No significant bone loss was observed. Discussion: LOW RISK OF FRACTURE; BONE DENSITY IS WELL ABOVE THE MINIMUM DESIRABLE LEVEL AND ABOVE AVERAGE FOR AGE AND SEX AT ALL SKELETAL SITES TESTED. This person's bone density is above expected limits for age and sex. This is rarely clinically significant, but should be pursued if there are significant musculoskeletal complaints. The patient should follow a healthful lifestyle (good nutrition with adequate calcium and vitamin D, and appropriate weight-bearing exercise). Follow-Up: Consider repeating this study in 5 years or sooner if there is some new clinical indication. Reported by: RACHEL SEXTON M.D. on 12/26/2022 11:41:00 AM.
== END ==
PROVIDERS: PCP Family Medicine; Referring Provider Family Medicine; Visit Provider Family Medicine
DX: M85.88 Other specified disorders of bone density and structure, other site (principal)
CPT/HCPCS: 77080; 77081

== ENCOUNTER 2023-03-17 13:08 | Outpatient (CLI) | payer MEDICARE, SELFPAY ==
[2022-08-19 09:49] VITALS: BMI 24.6
[2023-03-17] VITALS (8 sets, daily range): BP systolic 128–196; BP diastolic 74–90; PULSE 82–93; RESP 13–20; TEMP 36.4; O2SAT 96–100
--- NOTE | 2023-03-17 13:30 | DI.RAD.S_ITS ---
PROCEDURE: PAIN L/S TRANSFORAMINAL INJECT INDICATIONS: stenosis COMPARISON: None. FINDINGS: Fluoroscopic spot filming was performed to verify placement of spinal needles at the left L4-L5 transforaminal level(s), as labeled on the films. Appropriate location(s) of the needle tip(s) was confirmed by injection of iodinated contrast. IMPRESSION: Needle placement at left L4-L5 transforaminal level with contrast injection. Dictated by: Ayanna Chung M.D. on 03/17/2023 at 18:04 Approved by: Ayanna Chung M.D. on 03/17/2023 at 18:05
[2023-03-17] MEDS: MIDAZOLAM 2 MG/2 ML VIAL 1 MG IV ×2 (14:05→14:08)
[2023-03-17] MEDS: DEXAMETHASONE 10 MG/ML VIAL IV (14:10)
[2023-03-17] MEDS: BUPIVACAINE 0.25% (PF) VIAL 1 ML INJ (14:11)
[2023-03-17] MEDS: BETAMETHASONE 30 MG/5 ML MDV 6 MG INJ (14:12)
[2023-03-17] MEDS: iopamidoL 15 ML VIAL 3 ML INJ (14:12)
--- NOTE | 2023-03-17 14:22 | P.PCN_ITS ---
Date/Time/Diagnoses Date of procedure: 03/17/23 Time of procedure: 14:22 Pre-procedure diagnosis: 1. FORAMINAL STENOSIS WITH LE SYMPTOMS Post-procedure diagnosis: same Procedure Notes Procedure: 1. FLUOROSCOPICALLY GUIDED CONTRAST CONTROLLED TRANSFORAMINAL EPIDURAL STEROID INJECTION - LEFT L4/5 Indications: Rosie is referred by Dr. Paredes for treatment of Foraminal Stenosis with Left LE Symptoms Physician: Mejia Arevalo Total Fluoroscopy time (seconds): 11 Total sedation minutes: 10 Complications: none Procedure in detail & Post-procedure care: FINDINGS Foraminal Nerve Root Compression secondary to disc disease and facet hypertrophy DESCRIPTION OF PROCEDURE Following review of allergy and review of potential side effects and complications, including, but not necessarily limited to, infection, allergic reaction, local tissue breakdown, stroke, temporary or permanent nerve injury, paralysis, and possible , the patient indicated that the patient understood and agreed to proceed. An informed consent document was signed by the patient, witnessed by a nurse, and placed in the patient's chart. Additionally, other treatment options including medications, modalities, and physical therapy were reviewed with the patient. After review of previous anaesthesic history and IV conscious sedation the patient was deemed safe to proceed with today?s procedure with IV conscious sedation as ASA class II designation. Safety time-out was performed to confirm patient ID, procedure to be performed and site of procedure. IV sedation was accomplished with a combination of 2mg of Versed administered by the RN after DO order, titrated to patient comfort during the course of the procedure while the patient remained responsive to all verbal commands In the prone position following sterile prep and drape of the lumbar region, the left L4/5 posterior neuroforamen was identified fluoroscopically. The skin was anesthetized via a 25-gauge 1.5-inch needle with 1% lidocaine solution. At this point, a 25-gauge 3.5-inch spinal needle was atraumatically introduced and advanced under fluoroscopic guidance through the posterior left L4/5 neuroforamen to approximately the anterior aspect of the canal. Depth was confirmed on lateral view. Following negative aspiration, injection of approximately 1.5 cc of Isovue 200 under live fluoroscopy in the AP view confirmed excellent flow along the nerve root, into the epidural space without vascular or intrathecal uptake observed Radiological data, including multiple fluoroscopic views of the lumbosacral spine, reveal a spinal needle at the left L4/5 posterior neuroforamen. Subsequent views show flow of contrast material flowing superiorly and inferiorly along the nerve root confirming epidural flow. Subsequently, a test dose of 1.5 cc of 1% lidocaine solution was administered and patient was observed for two minutes for signs or symptoms of complications, including abdominal pain, shortness of breath, bilateral upper or lower extremity weakness, nausea and vomiting, prior to steroid injection. At this point, a total of 2cc or 10mg of dexamethasone and 6mg of betamethasone was injected without incident. The procedure tolerated the procedure well without signs or symptoms of complications prior to transfer to the recovery area continued monitoring without incident. The patient was then transferred to the recovery area where they were observed for an appropriate time after the injection. The patient reported a VAS score of 7 prior to the procedure and a post- procedure VAS of 0. POST OP INSTRUCTIONS The patient was provided a Pain Log to continue to record their response to the target-specific procedure prior to follow-up visit with their referring physician. Additionally, specific post-injection care instructions and a contact number to our office were provided if concerns arise regarding possible complications associated with the procedure are suspected.
--- NOTE | 2023-03-18 11:32 | PC.NURSE ---
Procedure follow up call: Left message @ [phone]. Encouraged to call the clinic back to follow up with questions, concerns or need for an appointment.
--- NOTE | 2023-03-18 12:54 | PC.NURSE ---
Procedure follow up call update: Dillon called back @ [phone]. No questions or concerns, she has a follow up appointment scheduled. Encouraged to call the clinic if issues arise.
== END 2023-03-17 14:45 | disposition home or self-care (01) ==
LOC: RAD 13:08
PROVIDERS: PCP Family Medicine; Referring Provider Physical Medicine & Rehabilitation; Visit Provider Physical Medicine & Rehabilitation
DX: M48.061 Spinal stenosis, lumbar region without neurogenic claudication (principal); M51.16 Intervertebral disc disorders with radiculopathy, lumbar region; M47.26 Other spondylosis with radiculopathy, lumbar region
CPT/HCPCS: 64483; 99152; J0702; J1100; J2250; J3490

== ENCOUNTER → 2023-05-27 12:15 | Outpatient (CLI) | payer MEDICARE, SELFPAY ==
[2022-08-19 09:49] VITALS: BMI 24.6
--- NOTE | 2023-05-27 12:17 | DI.RAD.S_ITS ---
PROCEDURE: XR LUMBAR SPINE MIN 4V INDICATIONS: BACK PAIN TECHNIQUE: 5 views of the lumbar spine were acquired, including bilateral oblique views. COMPARISON: [facility], CR, XR LUMBAR SPINE 2-3V, 06/10/2021, 10:11. FINDINGS: Bones: 5 nonrib-bearing vertebrae are present. Grade 1 anterolisthesis of L4 on L5 of approximately 7 mm. No vertebral body compression fractures. Multilevel degenerative changes with osteophytosis, disc height loss and facet arthropathy, moderate to severe at L5-S1 and mild in the remainder of the lumbar spine. Severe osseous neural foraminal narrowing at L5-S1. No suspicious bony lesions. 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 Soft tissues: Overlying bowel gas pattern is normal. No suspicious soft tissue calcifications. Calcified fibroid uterus. Calcification of the abdominal aorta. Oblique images: No pars defects. IMPRESSION: 1. No acute bony abnormality. 2. Multilevel degenerative changes, moderate to severe at L5-S1 where there is associated severe osseous neural foraminal narrowing. Dictated by: Marko Lyles M.D. on 05/27/2023 at 13:01 Approved by: Marko Lyles M.D. on 05/27/2023 at 13:03
== END ==
PROVIDERS: PCP Family Medicine; Referring Provider Physical Medicine & Rehabilitation; Visit Provider Physical Medicine & Rehabilitation
DX: M48.062 Spinal stenosis, lumbar region with neurogenic claudication (principal); M48.07 Spinal stenosis, lumbosacral region; M47.817 Spondylosis without myelopathy or radiculopathy, lumbosacral region; M47.816 Spondylosis without myelopathy or radiculopathy, lumbar region; M43.16 Spondylolisthesis, lumbar region; M53.3 Sacrococcygeal disorders, not elsewhere classified; E11.9 Type 2 diabetes mellitus without complications; Z96.643 Presence of artificial hip joint, bilateral
CPT/HCPCS: 72110; 99215

== ENCOUNTER 2023-06-30 15:22 | Outpatient (CLI) | payer MEDICARE, SELFPAY ==
[2022-08-19 09:49] VITALS: BMI 24.6
[2023-06-30] VITALS (8 sets, daily range): BP systolic 113–157; BP diastolic 55–67; PULSE 90–96; RESP 13–22; O2SAT 96–100
--- NOTE | 2023-06-30 15:30 | DI.RAD.S_ITS ---
PROCEDURE: PAIN L/S TRANSFORAMINAL INJECT INDICATIONS: STENOSIS COMPARISON: [facility], , PAIN L/S TRANSFORAMINAL INJECT, 03/17/2023, 15:06. FINDINGS: Fluoroscopic spot filming was performed to verify placement of spinal needles at the L4-5 level(s), as labeled on the films. Appropriate location(s) of the needle tip(s) was confirmed by injection of iodinated contrast. IMPRESSION: Fluoro guidance was provided intraoperatively for left L4-5 transforaminal epidural steroid injection performed by the ordering physician. Dictated by: Isac Tamez M.D. on 06/30/2023 at 17:33 Approved by: Isac Tamez M.D. on 06/30/2023 at 17:34
[2023-06-30] MEDS: MIDAZOLAM 2 MG/2 ML VIAL IV (16:09)
[2023-06-30] MEDS: BETAMETHASONE 30 MG/5 ML MDV 6 MG INJ (16:14)
[2023-06-30] MEDS: DEXAMETHASONE 10 MG/ML VIAL INJ (16:14)
[2023-06-30] MEDS: iopamidoL 15 ML VIAL 3 ML INJ (16:15)
[2023-06-30] MEDS: BUPIVACAINE 0.5% (PF) 10 ML VIAL 2 ML INJ (16:15)
--- NOTE | 2023-06-30 16:28 | P.PCN_ITS ---
Date/Time/Diagnoses Date of procedure: 06/30/23 Time of procedure: 16:29 Pre-procedure diagnosis: 1. FORAMINAL STENOSIS WITH LE SYMPTOMS Post-procedure diagnosis: same Procedure Notes Procedure: 1. FLUOROSCOPICALLY GUIDED CONTRAST CONTROLLED TRANSFORAMINAL EPIDURAL STEROID INJECTION - LEFT L4/5 Indications: Rosie is referred by Dr. Paredes for treatment of Foraminal Stenosis with Left LE Symptoms Physician: Mejia Arevalo Total Fluoroscopy time (seconds): 14 Total sedation minutes: 13 Complications: none Procedure in detail & Post-procedure care: FINDINGS Foraminal Nerve Root Compression secondary to disc disease and facet hypertrophy DESCRIPTION OF PROCEDURE Following review of allergy and review of potential side effects and complications, including, but not necessarily limited to, infection, allergic reaction, local tissue breakdown, stroke, temporary or permanent nerve injury, paralysis, and possible , the patient indicated that the patient understood and agreed to proceed. An informed consent document was signed by the patient, witnessed by a nurse, and placed in the patient's chart. Additionally, other treatment options including medications, modalities, and physical therapy were reviewed with the patient. After review of previous anaesthesic history and IV conscious sedation the patient was deemed safe to proceed with today?s procedure with IV conscious sedation as ASA class II designation. Safety time-out was performed to confirm patient ID, procedure to be performed and site of procedure. IV sedation was accomplished with a combination of 2mg of Versed administered by the RN after DO order, titrated to patient comfort during the course of the procedure while the patient remained responsive to all verbal commands In the prone position following sterile prep and drape of the lumbar region, the left L4/5 posterior neuroforamen was identified fluoroscopically. The skin was anesthetized via a 25-gauge 1.5-inch needle with 1% lidocaine solution. At this point, a 25-gauge 3.5-inch spinal needle was atraumatically introduced and advanced under fluoroscopic guidance through the posterior left L4/5 neuroforamen to approximately the anterior aspect of the canal. Depth was confirmed on lateral view. Following negative aspiration, injection of approximately 1.5 cc of Isovue 200 under live fluoroscopy in the AP view confirmed excellent flow along the nerve root, into the epidural space without vascular or intrathecal uptake observed Radiological data, including multiple fluoroscopic views of the lumbosacral spine, reveal a spinal needle at the left L4/5 posterior neuroforamen. Subsequent views show flow of contrast material flowing superiorly and inferiorly along the nerve root confirming epidural flow. Subsequently, a test dose of 1.5 cc of 1% lidocaine solution was administered and patient was observed for two minutes for signs or symptoms of complications, including abdominal pain, shortness of breath, bilateral upper or lower extremity weakness, nausea and vomiting, prior to steroid injection. At this point, a total of 2cc or 10mg of dexamethasone and 6mg of betamethasone was injected without incident. The procedure tolerated the procedure well without signs or symptoms of complications prior to transfer to the recovery area continued monitoring without incident. The patient was then transferred to the recovery area where they were observed for an appropriate time after the injection. The patient reported a VAS score of 7 prior to the procedure and a post- procedure VAS of 1. POST OP INSTRUCTIONS The patient was provided a Pain Log to continue to record their response to the target-specific procedure prior to follow-up visit with their referring physician. Additionally, specific post-injection care instructions and a contact number to our office were provided if concerns arise regarding possible complications associated with the procedure are suspected.
--- NOTE | 2023-06-30 16:50 | PC.NURSE ---
Patient stood with 2 person stand by assist. Reports some increased pain to right calf but denies weakness or numbness. However; when patient took a few steps some leaning to the left side was noted. Pt assisted back to chair safely. Dr. Arevalo made aware. Care ongoing.
--- NOTE | 2023-06-30 17:19 | PC.NURSE ---
Dr. Arevalo at chairside to evaluate. Multiple strength testing exercises completed without difficulty by patient. Denies numbness or weakness to lower extremities. Stood with SBA, steady. Able to bend into a squat and stand on each leg individually. Took multiple steps without issue. Dr. Arevalo gives ok to discharge home. Encouraged patient to head straight home and take it easy. Discussed the prior leaving while ambulating may be related to sedation. Patient verbalized understanding.
== END 2023-06-30 17:23 | disposition home or self-care (01) ==
PROVIDERS: PCP Family Medicine; Referring Provider Physical Medicine & Rehabilitation; Visit Provider Physical Medicine & Rehabilitation
DX: M48.061 Spinal stenosis, lumbar region without neurogenic claudication (principal); M51.16 Intervertebral disc disorders with radiculopathy, lumbar region; M47.26 Other spondylosis with radiculopathy, lumbar region
CPT/HCPCS: 64483; 99152; J0702; J1100; J2250

== ENCOUNTER → 2023-07-06 08:33 | Outpatient (CLI) | payer MEDICARE, SELFPAY ==
[2022-08-19 09:49] VITALS: BMI 24.6
[2023-07-06 09:45] LABS: Hemoglobin A1C% w Est Avg Glu 6.1 % (4.0-6.0)
[2023-07-06 09:48] LABS: Alanine Aminotransferase 17 IU/L (<35); Albumin 4.3 g/dL (3.5-5.0); Albumin Globulin Ratio 1.8 (1.0-2.8); Alkaline Phosphatase 53 U/L (38-126); Aspartate Aminotransferase 23 IU/L (14-36); BUN Creatinine Ratio 27.6 (6-22); Bilirubin Total 0.3 mg/dL (0.2-1.3); Blood Urea Nitrogen 16 mg/dL (7-17); Calcium 10.2 mg/dL (8.4-10.2); Carbon Dioxide 32 mmol/L (22-32); Chloride 97 mmol/L (98-107); Cholesterol 154 mg/dL (140-199); Estimated Glomerular Filt Rate > 60 mL/min (>60); Globulin 2.4 g/dL (1.7-4.1); Glucose 103 mg/dL (80-110); HDL Cholesterol 98 mg/dL (40-60); HEMOLYSIS < 15 (0-50); LDL Cholesterol Calculated 46 mg/dL (<100); Potassium 4.2 mmol/L (3.4-5.1); Sodium 131 mmol/L (137-145); Total Protein 6.7 g/dL (6.3-8.2); Triglycerides 52 mg/dL (35-150)
[2023-07-06 10:36] LABS: Creatinine Urine Random 75.3 mg/dL
[2023-07-06 11:16] LABS: Microalbumi Creatinin Ratio Ur 42.4 ug/mg CR (<30); Microalbumin Urine Random 3.2 mg/dL (0-1.6)
== END ==
PROVIDERS: PCP Family Medicine; Referring Provider Family Medicine; Visit Provider Family Medicine
DX: I10 Essential (primary) hypertension (principal); E11.9 Type 2 diabetes mellitus without complications; E78.2 Mixed hyperlipidemia
CPT/HCPCS: 36415; 80053; 80061; 82043; 82570; 83036

== ENCOUNTER 2023-09-24 09:34 | Outpatient (CLI) | payer MEDICARE, SELFPAY ==
[2022-08-19 09:49] VITALS: BMI 24.6
[2023-09-24] VITALS (9 sets, daily range): BP systolic 132–178; BP diastolic 63–86; PULSE 81–85; RESP 13–22; TEMP 35.8; O2SAT 98–100
[2023-09-24] MEDS: MIDAZOLAM 2 MG/2 ML VIAL IV (10:10)
--- NOTE | 2023-09-24 10:15 | DI.RAD.S_ITS ---
PROCEDURE: PAIN L/S TRANSFORAMINAL INJECT INDICATIONS: left L4/5 TFESI COMPARISON: [facility], , PAIN L/S TRANSFORAMINAL INJECT, 06/30/2023, 16:13. FINDINGS: Fluoroscopic spot filming was performed to verify placement of spinal needles at the L4-L5 level(s), as labeled on the films. Appropriate location(s) of the needle tip(s) was confirmed by injection of iodinated contrast. IMPRESSION: L4-L5 injection. Fluoroscopic guidance was performed. Please see procedure note for full details. Dictated by: Aryan Elias M.D. on 09/24/2023 at 14:12 Approved by: Aryan Elias M.D. on 09/24/2023 at 14:12
[2023-09-24] MEDS: BETAMETHASONE 30 MG/5 ML MDV 6 MG INJ (10:16)
[2023-09-24] MEDS: iopamidoL 15 ML VIAL 3 ML INJ (10:17)
[2023-09-24] MEDS: BUPIVACAINE 0.25% (PF) VIAL 2 ML INJ (10:17)
[2023-09-24] MEDS: DEXAMETHASONE 10 MG/ML VIAL INJ (10:17)
--- NOTE | 2023-09-24 11:03 | PC.NURSE ---
Post Injection Patient to recovery from AL injection today. Patient reports a heaviness in her L groin/thigh area. Patient reports L thigh feels weaker getting from wheelchair to recovery chair compared to procedure room where she transferred from table to wheelchair. Patient denies numbness or tingling in her L leg/foot. Patient tolerated coffee and cookies post procedure. After 10 minutes patient stated that the heaviness feeling was still in L thigh but that she thought it is getting better. Patient stood from recovery chair by herself with this RN and radio presenter standing by. Patient able to stand unassisted, patient able to march in place and reports no decrease in L thigh strength. Patient able to walk 4 steps forward and backward by self with normal gait. Patient stated that she felt good and was ready to go home. Patient reported that her Rafael would be taking her home and that he would be with patient at home today. Patient verbalized understanding of discharge instructions and precautions. Patient discharged home via wheelchair at 1050.
--- NOTE | 2023-10-15 17:02 | P.PCN_ITS ---
Date/Time/Diagnoses Date of procedure: 09/24/23 Time of procedure: 10:15 Pre-procedure diagnosis: 1. FORAMINAL STENOSIS WITH LE SYMPTOMS Post-procedure diagnosis: same Procedure Notes Procedure: 1. FLUOROSCOPICALLY GUIDED CONTRAST CONTROLLED TRANSFORAMINAL EPIDURAL STEROID INJECTION - LEFT L4/5 Indications: Rosie is referred by Dr. Paredes for treatment of Foraminal Stenosis with Left LE Symptoms Physician: Mejia Arevalo Total Fluoroscopy time (seconds): 11 Total sedation minutes: 14 Complications: none Procedure in detail & Post-procedure care: FINDINGS Foraminal Nerve Root Compression secondary to disc disease and facet hypertrophy DESCRIPTION OF PROCEDURE Following review of allergy and review of potential side effects and complications, including, but not necessarily limited to, infection, allergic reaction, local tissue breakdown, stroke, temporary or permanent nerve injury, paralysis, and possible , the patient indicated that the patient understood and agreed to proceed. An informed consent document was signed by the patient, witnessed by a nurse, and placed in the patient's chart. Additionally, other treatment options including medications, modalities, and physical therapy were reviewed with the patient. After review of previous anaesthesic history and IV conscious sedation the patient was deemed safe to proceed with today?s procedure with IV conscious sedation as ASA class II designation. Safety time-out was performed to confirm patient ID, procedure to be performed and site of procedure. IV sedation was accomplished with a combination of 2mg of Versed was administered by the RN after DO order, titrated to patient comfort during the course of the procedure while the patient remained responsive to all verbal commands In the prone position following sterile prep and drape of the lumbar region, the left L4/5 posterior neuroforamen was identified fluoroscopically. The skin was anesthetized via a 25-gauge 1.5-inch needle with 1% lidocaine solution. At this point, a 25-gauge 3.5-inch spinal needle was atraumatically introduced and advanced under fluoroscopic guidance through the posterior left L4/5 neuroforamen to approximately the anterior aspect of the canal. Depth was confirmed on lateral view. Following negative aspiration, injection of approximately 1.5 cc of Isovue 200 under live fluoroscopy in the AP view confirmed excellent flow along the nerve root, into the epidural space without vascular or intrathecal uptake observed Radiological data, including multiple fluoroscopic views of the lumbosacral spine, reveal a spinal needle at the left L4/5 posterior neuroforamen. Subsequent views show flow of contrast material flowing superiorly and inferiorly along the nerve root confirming epidural flow. Subsequently, a test dose of 1.5 cc of 1% lidocaine solution was administered and patient was observed for two minutes for signs or symptoms of complications, including abdominal pain, shortness of breath, bilateral upper or lower extremity weakness, nausea and vomiting, prior to steroid injection. At this point, a total of 2cc or 10mg of dexamethasone and 6mg of betamethasone was injected without incident. The procedure tolerated the procedure well without signs or symptoms of complications prior to transfer to the recovery area continued monitoring without incident. The patient was then transferred to the recovery area where they were observed for an appropriate time after the injection. The patient reported a VAS score of 7 prior to the procedure and a post- procedure VAS of 0. POST OP INSTRUCTIONS The patient was provided a Pain Log to continue to record their response to the target-specific procedure prior to follow-up visit with their referring physici an. Additionally, specific post-injection care instructions and a contact number to our office were provided if concerns arise regarding possible complications associated with the procedure are suspected.
== END 2023-09-24 10:50 | disposition home or self-care (01) ==
PROVIDERS: PCP Family Medicine; Referring Provider Physical Medicine & Rehabilitation; Visit Provider Physical Medicine & Rehabilitation
DX: M48.061 Spinal stenosis, lumbar region without neurogenic claudication (principal); M51.16 Intervertebral disc disorders with radiculopathy, lumbar region; M47.26 Other spondylosis with radiculopathy, lumbar region
CPT/HCPCS: 64483; 99152; J0702; J1100; J2250; J3490

== ENCOUNTER → 2023-11-06 13:26 | Outpatient (CLI) | payer MEDICARE, SELFPAY ==
[2022-08-19 09:49] VITALS: BMI 24.6
--- NOTE | 2023-11-06 13:27 | DI.MG.S_ITS ---
BILATERAL DIGITAL SCREENING MAMMOGRAM 3D/2D WITH CAD: 11/06/2023 CLINICAL: Routine screening. Family history of breast cancer. Comparison is made to exams dated: 10/17/2022 mammogram, 10/14/2021 mammogram, and 10/11/2020 mammogram - [facility]. There are scattered areas of fibroglandular density in both breasts (category b / 25%-50% glandular tissue). Current study was also evaluated with a Computer Aided Detection (CAD) system. There are benign vascular calcifications in both breasts. No significant masses, calcifications, or other findings are seen in either breast. There has been no significant interval change. IMPRESSION: BENIGN There is no mammographic evidence of malignancy. A 1 year screening mammogram is recommended. Based on the Tyrer Cuzick model (a risk assessment model) the patient's lifetime risk is 8.5% and her 10 year risk is 7.7%. According to the ACR, ACS, and NCCN guidelines, an annual breast MRI exam along with mammogram is recommended if the patient's lifetime risk is 20% or greater. This exam was interpreted at Station ID: [id number]. NOTE: For mammograms, a report in lay terms will be sent to the patient. Approximately 15% of breast malignancies will not be visualized mammographically. In the management of a palpable breast mass, a negative mammogram must not discourage biopsy of a clinically suspicious lesion. Electronically Signed By: Deondre aguirre/perico:11/06/2023 15:02:24 letter sent: Normal Exam ACR BI-RADS Category 2: Benign Finding(s) [id number]
== END ==
LOC: MAMMO 13:27
PROVIDERS: PCP Family Medicine; Referring Provider Family Medicine; Visit Provider Family Medicine
DX: Z12.31 Encounter for screening mammogram for malignant neoplasm of breast (principal); Z80.3 Family history of malignant neoplasm of breast; R92.323 Mammographic fibroglandular density, bilateral breasts
CPT/HCPCS: 77063; 77067

== ENCOUNTER → 2023-11-20 13:33 | Outpatient (CLI) | payer MEDICARE, SELFPAY ==
[2022-08-19 09:49] VITALS: BMI 24.6
--- NOTE | 2023-11-20 14:00 | DI.MRI.S_ITS ---
PROCEDURE: MR LUMBAR SPINE WO CON INDICATIONS: spinal stenosis progression TECHNIQUE: Noncontrast sagittal T1 spin echo and T2 fast echo, sagittal STIR, and T2 fast spin echo through the lumbar spine. In cases with scoliosis, additional coronal T2 fast spin echo may be performed. COMPARISON: [facility], MR, MR LUMBAR SPINE WO CON, 11/06/2021, 8:41. FINDINGS: Image quality: Excellent. Alignment and Curvature: Grade 1 anterolisthesis of L4 on L5 Bone Marrow: Degenerative endplate changes, most pronounced at L5-S1. Marrow is of normal overall signal. No acute vertebral body compression fractures. Spinal Cord: Conus medullaris terminates at the L1-L2 level. Visualized cord demonstrates normal signal and size. Paraspinous Soft Tissues: No paravertebral masses. T12-L1: Normal appearance. L1-L2: Normal appearance. L2-L3: Disc desiccation and mild height loss. Diffuse disc bulge. Facet arthropathy and thickening of ligamentum flavum. Mild central canal stenosis. Stable mild to moderate right and moderate left neural foraminal stenosis. L3-L4: Disc desiccation and mild diffuse disc bulge. Facet arthropathy and thickening of ligamentum flavum. Epidural lipomatosis. Stable mild to moderate central canal stenosis. Stable moderate bilateral neural foraminal stenosis. L4-L5: Anterolisthesis. Disc desiccation height loss. Posterior disc bulge. Facet arthropathy and thickening of ligamentum flavum. Moderate to severe central canal stenosis is again seen. Moderate to severe bilateral neural foraminal stenosis. L5-S1: Disc desiccation is severe height loss. Diffuse disc bulge. Facet arthropathy. Mild central canal stenosis. Moderate to severe bilateral neural foraminal stenosis is stable. IMPRESSION: 1. Multilevel degenerative changes of the lumbar spine are overall similar in appearance compared to prior exam. 2. Moderate to severe central canal stenosis at L4-5. 3. Moderate to severe bilateral neural foraminal stenosis at L4-5 and L5-S1. Dictated by: Tom Coon M.D. on 11/20/2023 at 19:52 Approved by: Tom Coon M.D. on 11/20/2023 at 19:55
== END ==
PROVIDERS: PCP Family Medicine; Referring Provider Physical Medicine & Rehabilitation; Visit Provider Physical Medicine & Rehabilitation
DX: M43.16 Spondylolisthesis, lumbar region (principal); M48.061 Spinal stenosis, lumbar region without neurogenic claudication; M48.07 Spinal stenosis, lumbosacral region; M51.36 Other intervertebral disc degeneration, lumbar region; M51.37 Other intervertebral disc degeneration, lumbosacral region; M47.816 Spondylosis without myelopathy or radiculopathy, lumbar region; M47.817 Spondylosis without myelopathy or radiculopathy, lumbosacral region
CPT/HCPCS: 72148

== ENCOUNTER → 2023-12-28 13:55 | Outpatient (CLI) | payer MEDICARE, SELFPAY ==
[2022-08-19 09:49] VITALS: BMI 24.6
--- NOTE | 2023-12-28 13:57 | DI.CT.S_ITS ---
PROCEDURE: CT LUMBAR SPINE WO CON INDICATIONS: SPONDOLILTHIASES TECHNIQUE: Noncontrast 3 mm thick sections acquired from the T12 level to the sacrum. Sagittal and coronal reformats were constructed. For radiation dose reduction, the following was used: automated exposure control. COMPARISON: [facility], MR, MR LUMBAR SPINE WO CON, 11/20/2023, 14:21. FINDINGS: Image quality: Excellent. Bones: Grade 1 anterolisthesis of L4 on L5. Multilevel degenerative changes with disc height loss, vacuum disc phenomenon, reactive endplate changes and osteophytosis. This is severe at L5-S1. Multilevel facet arthropathy, most pronounced within the lower lumbar spine. Moderate to severe central canal stenosis at L4-5 is redemonstrated. Moderate to severe bilateral neural foraminal stenosis at L4-5 and L5-S1. No acute vertebral body compression fractures. No suspicious lytic or blastic bony lesions. No pars defects. Soft tissues: No retroperitoneal masses or hematomas. Visualized aorta is normal in caliber. Atherosclerotic vascular calcifications. Calcifications within the visualized uterus, likely degenerated fibroids. Left adnexal cystic structure measuring 2.7 cm. IMPRESSION: Redemonstration of multilevel degenerative changes of the lumbar spine, most pronounced at L4-5 and L5-S1 as described above. Left adnexal cystic structure measuring 2.7 cm. Recommend pelvic ultrasound for further evaluation. Dictated by: Tom Coon M.D. on 12/28/2023 at 18:18 Approved by: Tom Coon M.D. on 12/28/2023 at 18:21
--- NOTE | 2023-12-28 13:57 | DI.CT.S_ITS ---
PROCEDURE: CT THORACIC SPINE WO CON INDICATIONS: SPONDOLILTHIASES TECHNIQUE: Noncontrast 3 mm thick sections acquired through the region of interest in the thoracic spine. Sagittal and coronal reformats were then constructed. For radiation dose reduction, the following was used: automated exposure control. COMPARISON: None. FINDINGS: Image quality: Excellent. Bones: There is normal overall bony alignment. No acute vertebral body compression fractures. No suspicious sclerotic or lytic bony lesions. Central spinal canal is of normal overall caliber. Multilevel degenerative changes of the thoracic spine with intervertebral disc height loss, degenerative endplate changes and osteophytosis. No significant osseous central canal or neural foraminal stenosis. Soft tissues: No paravertebral masses or hematomas. Visualized posteromedial lungs appear clear. Atherosclerotic vascular calcifications. Severe coronary artery calcifications. IMPRESSION: Multilevel degenerative changes of the thoracic spine. No significant osseous central canal or neural foraminal stenosis. Dictated by: Tom Coon M.D. on 12/28/2023 at 18:13 Approved by: Tom Coon M.D. on 12/28/2023 at 18:18
== END ==
PROVIDERS: PCP Family Medicine; Referring Provider Neurological Surgery; Visit Provider Neurological Surgery
DX: M43.16 Spondylolisthesis, lumbar region (principal); M47.814 Spondylosis without myelopathy or radiculopathy, thoracic region; M47.816 Spondylosis without myelopathy or radiculopathy, lumbar region; M47.817 Spondylosis without myelopathy or radiculopathy, lumbosacral region; N94.89 Other specified conditions associated with female genital organs and menstrual cycle
CPT/HCPCS: 72128; 72131

== ENCOUNTER → 2024-01-13 07:28 | Outpatient (CLI) | payer MEDICARE, SELFPAY ==
[2022-08-19 09:49] VITALS: BMI 24.6
[2024-01-13 08:18] LABS: Add Manual Diff / Slide Review NO; Basophils Absolute Auto 100 /uL (0-100); Basophils Percent Auto 1.4 % (0-2); Eosinophils Absolute Auto 500 /uL (0-450); Eosinophils Percent Auto 8.3 % (2-4); Hematocrit 37.6 % (36-46); Hemoglobin 12.8 g/dL (12.0-16.0); Lymphocytes Absolute Auto 1100 /uL (1100-4500); Lymphocytes Percent Auto 17.8 % (25-40); Mean Corpuscular HGB Conc 33.9 % (30-36); Mean Corpuscular Hemoglobin 32.9 PG (26-34); Mean Corpuscular Volume 97.1 fL (80-100); Monocytes Absolute Auto 800 /uL (0-900); Monocytes Percent Auto 12.9 % (3-14); Neutrophils Absolute Auto 3600 /uL (1500-7000); Neutrophils Percent Auto 59.6 % (50-75); Platelet Count 306 X10^3/uL (150-400); Red Blood Cell Count 3.87 X10^6/uL (4.0-5.2)
[2024-01-13 08:31] LABS: Hemoglobin A1C% w Est Avg Glu 5.8 % (4.0-6.0)
[2024-01-13 08:45] LABS: Alanine Aminotransferase 15 IU/L (<35); Albumin 4.4 g/dL (3.5-5.0); Albumin Globulin Ratio 1.8 (1.0-2.8); Alkaline Phosphatase 62 U/L (38-126); Aspartate Aminotransferase 28 IU/L (14-36); Bilirubin Total 0.5 mg/dL (0.2-1.3); Blood Urea Nitrogen 11 mg/dL (7-17); Calcium 10.4 mg/dL (8.4-10.2); Carbon Dioxide 29 mmol/L (22-32); Chloride 94 mmol/L (98-107); Cholesterol 154 mg/dL (140-199); Estimated Glomerular Filt Rate > 60 mL/min (>60); Globulin 2.5 g/dL (1.7-4.1); Glucose 91 mg/dL (80-110); HDL Cholesterol 110 mg/dL (40-60); HEMOLYSIS < 15 (0-50); LDL Cholesterol Calculated 36 mg/dL (<100); Potassium 4.3 mmol/L (3.4-5.1); Sodium 129 mmol/L (137-145); Total Protein 6.9 g/dL (6.3-8.2); Triglycerides 41 mg/dL (35-150)
[2024-01-13 09:00] LABS: Microalbumin Urine Random 2.1 mg/dL (0-1.6)
[2024-01-13 14:03] LABS: HEMOLYSIS < 15 (0-50); Iron 77 ug/dL (37-170)
[2024-01-13 14:13] LABS: Percent Iron Saturation 20 % (15-50); Total Iron Binding Capacity 377 ug/dL (265-497); Transferrin 305 mg/dL (206-381)
== END ==
PROVIDERS: Physician Assistant; PCP Family Medicine; Referring Provider Family Medicine; Visit Provider Family Medicine
DX: E78.2 Mixed hyperlipidemia (principal); E11.9 Type 2 diabetes mellitus without complications; I10 Essential (primary) hypertension; D64.9 Anemia, unspecified; Z79.4 Long term (current) use of insulin; F41.9 Anxiety disorder, unspecified; F32.A Depression, unspecified
CPT/HCPCS: 36415; 80053; 80061; 82043; 82570; 83036; 83540; 83550; 85025

== ENCOUNTER → 2024-06-21 12:19 | Outpatient (CLI) | payer MEDICARE, SELFPAY ==
[2022-08-19 09:49] VITALS: BMI 24.6
--- NOTE | 2024-06-21 12:20 | DI.US.S_ITS ---
PROCEDURE: US PELVIC COMPLETE INDICATIONS: LEFT ADNEXAL CYST TECHNIQUE: Real-time scanning was performed of the pelvic organs, with image documentation. Additional endovaginal scanning was necessary due to incomplete visualization of the adnexal and endometrial structures by transabdominal scanning. COMPARISON: [facility], US, US PELVIC COMPLETE, 12/06/2018, 9:44. FINDINGS: Uterus: Uterus is retroverted and normal in size at 5.4 x 2.5 x 4.0 cm. The myometrium is heterogeneous. The endometrium measures 2 mm combined thickness. Possible nonvascular mass within the endometrium measuring 7 x 1 x 3 mm, may represent a polyp. Small fluid within the endometrium. Numerous calcified fibroids. Left anterior intramural fibroid measuring 2.3 x 1.5 x 2.4 cm. Left anterior intramural fibroid measuring 1.5 x 0.8 x 0.8 cm. Left posterior intramural fibroid measuring 1.5 x 0.8 x 1.3 cm. Ovaries: The right ovary is not seen. The left ovary measures 3.8 x 2.3 x 2.5 cm, with a calculated ovarian volume of 11.4 cc. Septated cyst measuring 2.9 x 2.0 x 2.3 cm, No adnexal masses are seen. Other: No pathologic free abdominal or pelvic fluid. IMPRESSION: Septated cyst in the left ovary measuring 2.9 cm. Recommend continued follow-up ultrasound to assess stability. Possible polyp within the endometrium measuring 7 x 1 x 3 mm. Recommend gynecology consultation. Multiple calcified uterine fibroids. The right ovary is not seen. We strive to produce accurate, complete, and clear reports of imaging services. To assist us in improving patient care, this report was composed using standard report templates and voice recognition software. Therefore, it may contain abnormal punctuation, insertions and/or omissions. Occasional wrong-word or sound-alike substitutions may occur. Though we review the report and make efforts to correct it, we do recommend that the report be read carefully in proper context to recognize any text inaccuracies. Dictated by: Tom Coon M.D. on 06/21/2024 at 14:28 Approved by: Tom Coon M.D. on 06/21/2024 at 14:31
== END ==
PROVIDERS: PCP Family Medicine; Referring Provider Family Medicine; Visit Provider Family Medicine
DX: D25.1 Intramural leiomyoma of uterus (principal); N83.292 Other ovarian cyst, left side
CPT/HCPCS: 76830; 76856

== ENCOUNTER → 2024-07-11 07:17 | Outpatient (CLI) | payer MEDICARE, SELFPAY ==
[2022-08-19 09:49] VITALS: BMI 24.6
[2024-07-11 08:09] LABS: Hemoglobin A1C% w Est Avg Glu 6.7 % (4.0-6.0)
[2024-07-11 08:28] LABS: Alanine Aminotransferase 23 IU/L (<35); Albumin 4.5 g/dL (3.5-5.0); Albumin Globulin Ratio 1.9 (1.0-2.8); Alkaline Phosphatase 62 U/L (38-126); Aspartate Aminotransferase 31 IU/L (14-36); BUN Creatinine Ratio 33.9 (6-22); Bilirubin Total 0.5 mg/dL (0.2-1.3); Blood Urea Nitrogen 20 mg/dL (7-17); Calcium 10.2 mg/dL (8.4-10.2); Carbon Dioxide 29 mmol/L (22-32); Chloride 97 mmol/L (98-107); Cholesterol 148 mg/dL (140-199); Estimated Glomerular Filt Rate > 60 mL/min (>60); Globulin 2.4 g/dL (1.7-4.1); Glucose 117 mg/dL (70-99); HDL Cholesterol 76 mg/dL (40-60); HEMOLYSIS < 15 (0-50); LDL Cholesterol Calculated 60 mg/dL (<100); Potassium 4.2 mmol/L (3.4-5.1); Sodium 134 mmol/L (137-145); Total Protein 6.9 g/dL (6.3-8.2); Triglycerides 60 mg/dL (35-150)
== END ==
PROVIDERS: PCP Family Medicine; Referring Provider Family Medicine; Visit Provider Family Medicine
DX: E11.9 Type 2 diabetes mellitus without complications (principal)
CPT/HCPCS: 36415; 80053; 80061; 83036

== ENCOUNTER → 2024-10-06 11:59 | Outpatient (CLI) | payer MEDICARE, SELFPAY ==
[2022-08-19 09:49] VITALS: BMI 24.6
--- NOTE | 2024-10-06 12:00 | DI.RAD.S_ITS ---
PROCEDURE: XR SHOULDER LT MIN 2V INDICATIONS: Left shoulder pain - possible OA TECHNIQUE: 3 views of the shoulder were acquired. COMPARISON: None. FINDINGS: Bones: No fractures or dislocations. Mild to moderate degenerative changes at the acromioclavicular joint. No suspicious bony lesions. Visualized ribs appear intact. Soft tissues: No suspicious soft tissue calcifications. IMPRESSION: [id number] degenerative changes seen at the acromioclavicular joint. Dictated by: João Gore M.D. on 10/07/2024 at 13:15 Approved by: João Gore M.D. on 10/07/2024 at 13:16
== END ==
LOC: RAD 12:00
PROVIDERS: PCP Family Medicine; Referring Provider Physician Assistant; Visit Provider Physician Assistant
DX: M25.512 Pain in left shoulder (principal)
CPT/HCPCS: 73030

== ENCOUNTER → 2024-12-06 11:18 | Outpatient (CLI) | payer MEDICARE, SELFPAY ==
[2022-08-19 09:49] VITALS: BMI 24.6
--- NOTE | 2024-12-06 11:19 | DI.MG.S_ITS ---
MM screening mammo BI: 12/06/2024. BI-RADS: 0 CLINICAL: 74-year old female for bilateral screening mammogram. Tyrer-Cuzick lifetime risk of 4.1%. Current reported family history of breast cancer: mother. PRIOR EXAMS 11/06/2023, 10/17/2022, 10/14/2021, 10/11/2020. MAMMOGRAPHY TECHNIQUE: 2D and 3D (tomosynthesis) digital mammographic views obtained, with additional images as needed for full coverage. Current study was also evaluated with a Computer Aided Detection (CAD) system. DENSITY B. There are scattered areas of fibroglandular density. MAMMOGRAPHY FINDINGS Right: No suspicious mass, asymmetry, microcalcification, or other abnormality seen. Left: CC only, Inner, Middle depth: Asymmetry needing additional imaging evaluation. IMPRESSION: Right * No evidence of malignancy. Left (Asymmetry): CC only, Inner, Middle depth * Incomplete - asymmetry needing additional imaging evaluation. RECOMMENDATIONS Left: CC only, Inner, Middle depth * Further evaluation with diagnostic mammography and diagnostic ultrasound. Ultrasound to be performed only if needed. OVERALL ASSESSMENT CATEGORY BI-RADS-0: Incomplete - Need Additional Imaging Evaluation. ELECTRONICALLY SIGNED: Cherelle Ricci M.D. on 12/06/2024 at 11:27:37 PM PT Interpreting Station ID: [id number]
== END ==
PROVIDERS: PCP Family Medicine; Referring Provider Family Medicine; Visit Provider Family Medicine
DX: Z12.31 Encounter for screening mammogram for malignant neoplasm of breast (principal); Z80.3 Family history of malignant neoplasm of breast
CPT/HCPCS: 77063; 77067

== ENCOUNTER → 2024-12-21 09:29 | Outpatient (CLI) | payer MEDICARE, SELFPAY ==
[2022-08-19 09:49] VITALS: BMI 24.6
--- NOTE | 2024-12-21 09:31 | DI.US.S_ITS ---
PROCEDURE: US PELVIC COMPLETE INDICATIONS: 6 month follow up ovarian cyst TECHNIQUE: Real-time scanning was performed of the pelvic organs, with image documentation. Additional endovaginal scanning was necessary due to incomplete visualization of the adnexal and endometrial structures by transabdominal scanning. COMPARISON: [facility], US, US PELVIC COMPLETE, 06/21/2024, 12:29. FINDINGS: Uterus: Uterus is retroverted and normal in size at 6.2 x 4.4 x 2.2 cm. The myometrium is heterogeneous. The endometrium measures 2 mm combined thickness. Calcified fibroids are present . Trace fluid within the endometrium . Echogenic focus within the upper uterine segment measuring 6 x 5 x 2 mm. Ovaries: Right ovary not visualized due to presumed atrophy or overlying bowel gas. Multiloculated left ovarian cystic lesion measuring 2.5 x 2.1 x 2.6 cm, grossly unchanged from 06/21/2024. Other: No pathologic free abdominal or pelvic fluid. IMPRESSION: Similar size and appearance of the multiloculated left ovarian cystic lesion without papillary projections. O-RADS 3. Consider gynecologic referral. Small echogenic filling defect within the endometrium measuring 6 x 5 x 2 mm. Findings likely represent early polyp, less likely malignancy. Continued attention on follow-up is recommended. We strive to produce accurate, complete, and clear reports of imaging services. To assist us in improving patient care, this report was composed using standard report templates and voice recognition software. Therefore, it may contain abnormal punctuation, insertions and/or omissions. Occasional wrong-word or sound-alike substitutions may occur. Though we review the report and make efforts to correct it, we do recommend that the report be read carefully in proper context to recognize any text inaccuracies. Dictated by: aMgdi Hager M.D. on 12/21/2024 at 17:42 Approved by: Magdi Hager M.D. on 12/21/2024 at 17:44
--- NOTE | 2024-12-21 09:31 | DI.MG.S_ITS ---
MM diagnostic mammo unilat LT: 12/21/2024. BI-RADS: 2 CLINICAL: 74-year old female for left diagnostic mammogram that is a recall from screening on 12/06/2024. Tyrer-Cuzick lifetime risk of 4.1%. Current reported family history of breast cancer: mother. PRIOR EXAMS: 12/06/2024, 11/06/2023, 10/17/2022, 10/14/2021, 10/11/2020. MAMMOGRAPHY TECHNIQUE: 2D and 3D (tomosynthesis) digital mammographic views obtained, with additional images as needed for full coverage. Current study was also evaluated with a Computer Aided Detection (CAD) system. DENSITY Left: B. There are scattered areas of fibroglandular density. MAMMOGRAPHY FINDINGS Left: CC only, Inner: The asymmetry seen on recent screening mammogram did not persist with additional imaging and is consistent with superimposition of normal breast tissue. There are no suspicious masses, calcifications, or other findings in the breast. IMPRESSION: Left * No evidence of malignancy with benign findings. RECOMMENDATIONS Bilateral * Annual screening mammography. COMMENTS: Findings and recommendations were conveyed to the patient during today's evaluation. OVERALL ASSESSMENT CATEGORY BI-RADS-2: Benign. The [employer] recommends annual screening mammography beginning at age 40 for women with average risk of breast cancer. ELECTRONICALLY SIGNED: Cherelle Ricci M.D. on 12/21/2024 at 02:14:22 PM PT Interpreting Station ID: [id number]
== END ==
LOC: MAMMO 09:30
PROVIDERS: PCP Family Medicine; Referring Provider Student in an Organized Health Care Education/Training Program; Visit Provider Student in an Organized Health Care Education/Training Program
DX: R92.8 Other abnormal and inconclusive findings on diagnostic imaging of breast (principal); D39.12 Neoplasm of uncertain behavior of left ovary; Z80.3 Family history of malignant neoplasm of breast
CPT/HCPCS: 76830; 76856; 77065; G0279

== ENCOUNTER → 2025-01-09 06:59 | Outpatient (CLI) | payer MEDICARE, SELFPAY ==
[2022-08-19 09:49] VITALS: BMI 24.6
[2025-01-09 07:48] LABS: Hemoglobin A1C% w Est Avg Glu 5.7 % (4.0-6.0)
== END ==
PROVIDERS: PCP Family Medicine; Referring Provider Family Medicine; Visit Provider Student in an Organized Health Care Education/Training Program
DX: E11.9 Type 2 diabetes mellitus without complications (principal); N83.209 Unspecified ovarian cyst, unspecified side
CPT/HCPCS: 36415; 83036; 86304